=== PATIENT | male | born 1955 | race Caucasian/White ===

== ENCOUNTER 2023-10-09 13:38 | Outpatient (CLI) | payer MEDICARE, SELFPAY ==
--- NOTE | ~2023-10-09 | XR_ITS ---
EXAMINATION: XR hand LT min 3V INDICATION: Left hand pain TECHNIQUE: Three views of the left hand are obtained. COMPARISON: None available FINDINGS: Bone alignment is normal. There is no acute fracture. 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 There is mild osteoarthritis of the triscaphe and first carpom etacarpal joints. In addition, there is moderate osteoarthritis of multiple interphalangeal joints. T he soft tissues are unremarkable. IMPRESSION: 1. Polyarticular osteoarthritis without acute osseous abnormality. Reviewed, dictated and finalized at location F. L GRINDER
--- NOTE | ~2023-10-09 | XR_ITS ---
EXAMINATION: XR hand RT min 3V INDICATION: Right hand pain TECHNIQUE: Three views of the right hand are obtained. COMPARISON: None available FINDINGS: Bone alignment is normal. There is no fracture. There is advanced osteoarthritis at the tri scaphe and first carpometacarpal joints. Moderate osteoarthritis is noted in multiple interphalangeal joints. The soft tissues are unremarkable. IMPRESSION: 1. Polyarticular osteoarthritis without acute osseous abnormality. Reviewed, dictated and finalized at location F. PREAD CUTTER HAND
== END 2023-10-09 13:39 | disposition home or self-care (01) ==
PROVIDERS: PCP Internal Medicine; Visit Provider Plastic Surgery
DX: M19.041 Primary osteoarthritis, right hand (principal); M19.042 Primary osteoarthritis, left hand
CPT/HCPCS: 73130

== ENCOUNTER 2023-11-28 12:58 | Outpatient (CLI) | payer MEDICARE, SELFPAY ==
[2023-11-28 13:28] LABS: Anion Gap 6 mmol/L (8-16); Blood Urea Nitrogen 37 mg/dL (9-20); Carbon Dioxide 30 mmol/L (22-30); Chloride 99 mmol/L (98-107); Estimated Glomerular Filt Rate 37; Glucose 108 mg/dL (65-110); Potassium 4.4 mmol/L (3.4-5.0); Sodium 135 mmol/L (137-145)
--- NOTE | 2023-11-28 13:47 | ECG_ITS ---
Measurements Intervals [place] Rate: 54 P: 33 MT: 174 QRS: 34 QRSD: 97 T: 37 QT: 428 QTc: 406 Interpretive Statements SINUS BRADYCARDIA BORDERLINE ECG NO PREVIOUS ECG AVAILABLE FOR COMPARISON Electronically Signed On 11-28-2023 14:02:01 HEELER by Can Alexander D.O.
== END 2023-11-28 12:59 | disposition home or self-care (01) ==
PROVIDERS: PCP Internal Medicine; Visit Provider Anesthesiology
DX: Z01.818 Encounter for other preprocedural examination (principal); R94.31 Abnormal electrocardiogram [ECG] [EKG]
CPT/HCPCS: 36415; 80048; 93005

== ENCOUNTER 2023-11-29 05:51 | Day surgery (SDC) | payer MEDICARE, SELFPAY ==
[2023-11-14 08:39] VITALS: BMI 28.8
[2023-11-29] VITALS (10 sets, daily range): BP systolic 136–155; BP diastolic 70–90; PULSE 52–73; RESP 14–22; TEMP 36.2–36.5; O2SAT 98–100; BMI 28.6
--- NOTE | ~2023-11-29 | XR_ITS ---
XR surgery orthopedic DATE: 11/29/2023 09:20 INDICATION: Left wrist scaphoid excision TECHNIQUE: 4 spot C-arm images of left wrist 32 seconds total exposure time 2.8375 cGycm2 total DAP COMPARISON: 10/09/2023 left hand FINDINGS: There is surgical excision of the scaphoid bone. A bracket device bridges the lunate and capitate bones dorsally. IMPRESSION: Scaphoid excision Reviewed, dictated and finalized at Location A. Reviewed, dictated and finalized at location L. [place] MANAGEMENT KEYHOLDER IMPRESSION: Scaphoid excision
--- NOTE | 2023-11-29 06:55 | PM.HPGS ---
History of Present Illness History of Present Illness Chief complaint: Pain of Left Wrist after Trauma Narrative: Patient seen and examined in pre-operative holding area. No interval change in medical history or symptoms. Patient recalls previous discussion of benefits and alternatives to procedure. Continues to desire to proceed with left scaphoid excision, capitolunate fusion and possible radial styloidectomy. Reviewed procedure, post-op expectations and risks including but not limited to bleeding, infection, injury to tendon/nerve/vessel, decreased hand function, stiffness, RSD, no change or worsening of symptoms, hardware complications, failure of fusion. I discussed the possible use of assistants and their participation in the case. Patient stated understanding and signed the consent form wishing to proceed. Review of Systems Review of Systems: All systems reviewed & are unremarkable except as noted in HPI and below [facility] Social History Social History (Updated 10/09/23 @ 12:46 by Zoë Laughlin MA) Smoking status: Former smoker Additional smoking assessment comments: quit 40 years ago Alcohol intake: current Drinks per week: 8 Alcohol use details: drinks 3-4 x per week, 1-2 drinks on those occasions Lack of Transportation: No Lack of Food: Never True Current Housing: I Have Housing Concerned About Future Housing: No Difficulty Paying Gas/Electric Bills: No Difficulty Paying for Meds: No Currently Unemployed: No Education: Bachelor's Degree Difficulty w/ Childcare or Family Care: No Living arrangements: with family Additional living arrangements comments: Spiritual care concerns: No Meds Home Medications and Allergies Home Medications Medication Instructions Recorded Confirmed Type apremilast 30 mg tablet (Otezla) 30 mg PO BID 10/09/23 11/29/23 History escitalopram oxalate 10 mg tablet 30 mg PO DAILY 10/09/23 11/29/23 History hydrochlorothiazide 25 mg tablet 25 mg PO DAILY 10/09/23 11/29/23 History lisinopril 40 mg tablet 40 mg PO DAILY 10/09/23 11/29/23 History metoprolol succinate 25 mg 25 mg PO DAILY 10/09/23 11/29/23 History tablet,extended release 24 hr naproxen sodium 220 mg tablet 220 mg PO BID PRN Pain 10/09/23 11/29/23 History (Flanax (naproxen)) nifedipine 90 mg tablet,extended 90 mg PO DAILY 10/09/23 11/29/23 History release trazodone 100 mg tablet 100 mg PO QHS PRN Sleep 10/09/23 11/29/23 History ezetimibe 10 mg tablet 10 mg PO DAILY 11/29/23 11/29/23 History Allergies Allergy/AdvReac Type Severity Reaction Status Date / Time [id number] Reductase AdvReac Cramping Verified 11/29/23 06:19 Inhibitor of the Muscles Vital Signs Vital Signs - 24 hr 11/29/23 06:33 Temperature 36.5 C Pulse Rate 52 L Respiratory Rate 16 Blood Pressure 153/88 H Pulse Oximetry 98 Oxygen Delivery Room Air Exam Narrative: unchanged from previous Assessment and Plan Assessment and plan (1) Osteoarthritis of wrist: Qualifiers: Laterality: left Osteoarthritis type: primary Qualified Code(s): M19.032 - Primary osteoarthritis, left wrist Code(s): M19.039 - Primary osteoarthritis, unspecified wrist Status: Acute Assessment and Plan: cont with plan as above
--- NOTE | 2023-11-29 06:56 | W.PM.PROC2 ---
Procedure Note - Detailed Date of Procedure 11/29/23 Pre-op Diagnosis left SLAC wrist Post-op Diagnosis Same Procedure Performed left scaphoid excision, capitolunate fusion PIN neurectomy and radial styloidectomy Surgeon Lexy Kennedy MD Anesthesia General Description of Procedure INFORMED CONSENT: The patient was seen and examined and marked in the pre-op area.? The patient signed the consent form. PROCEDURE IN DETAIL:The patient taken back to OR on the stretcher in supine position. Time out performed with anesthesia, surgeon and staff agreeing on patient's name site and surgery to be performed SCDs were placed on the lower extremities and inflated. A tourniquet was placed on {left} upper extremity and antibiotics given IV After anesthesia administered sedation I injected {10}cc 1%lido with epi and 0.5% marcaine plain at the operative site The?{left upper extremity}?was prepped and draped in sterile fashion the??{left upper extremity} was? exsanguinated with Esmarch bandage and tourniquet inflated to 250mmHg I proceeded with making a longitudinal incision over the left wrist between the 3rd and 4th extensor compartments through skin and dermis with a 15 blade scalpel. Littler scissors were used to spread down to the retinaculum. I incised the 3rd extensor compartment and retracted EPL radially. I made an incision in the radial side of the 4th extensor compartment retinaculum and moved tendons ulnarly identifying the posterior interosseous nerve. I performed traction resection of 1.5cm of the nerve with forceps and then bipolar cautery to hopefully improve patient's post-operative pain and symptoms. I used a bovie to elevate the floor of the 4th extensor compartment en bloc off the wrist capsule. I performed an inverted T style capsuletomy reflecting capsule radially and lateraly to expose the scaphoid and capitolunate joint. I then proceeded with complete scaphoid excision using 15 blade, mcglamery elevator and rongeur. Mini c-arm was used to verify resection. There was prominent radial styloid and ossicles around the radial wrist noted on x-ray and appeared to be a potential site of pain and impingement with radial wrist deviation. Using osteotome and mallet and rongeur I resected the distal 3-4mm of styloid and the neigboring ossicles. This appeared to improve possible impingement on radial deviation. The radioscaphocapitate ligaments were preserved and intact after these procedures. Next I took my attention to the capitolunate joint. Inspecting the lunate and lunate fosse there appeared to be good cartilage and the capitolunate joint was noted to be arthritic with loss of cartilage cap on the capitate. I used a rongeur to debride and prepare the capitolunate joint for fusion. After irrigation, the capitolunate joint was reduced to a near zero degree capitolunate angle and secured with a 0.062 k-wire. This was verified with mini c-arm It was also noted there appeared to be minimal to no capitate radial subluxation. Using a rongeur I made a small channel dorsally from lunate to capitate. I then proceeded with placing an arthrex nitinol staple in standard fashion to secure the capitolunate fusion. Mini c-arm noted there was stability of the reduction, no impingement of staple on distal radius on wrist extension. There was also no translocation of lunate radially. I irrigated with normal saline. Bone graft harvested from the excised scaphoid was packed into small crevices and areas of the fusion site. the capsule was closed with 3-0 fiberwire. The extensor retinaculum was repaired with 3-0 vicryl. There was free full range motion of all tendons. The incision was closed with 3-0 vicryl and 4-0 monocryl A dressing of Dermabond, 4x4, chance, and a thumb spica splint was applied for patient safety, security, and comfort and secured with an katie bandage after the tourniquet was let down noting the hand was warm and well perfused. The patien
[2023-11-29] MEDS: LACTATED RINGERS 1,000 ML 30 ML IV CONT (07:14)
--- NOTE | 2023-11-29 07:22 | WPDANESEPPF ---
Anes - Initial Pre Proc Eval Procedure: Operation Date: 11/29/23 07:30 Proposed Procedures p Left Wrist Scaphoid Excision, Capitolunate Fusion and Posterior Interosseous Neurectomy - Lexy Kennedy MD Date/Time: 11/29/23 07:22 Surgeon: Lexy Kennedy MD Pre Op Diagnosis: Pain of Left Wrist after Trauma Patient Data Age: 68 Gender: M Height: 1.68 m Weight: 80.5 kg Last Vital Signs Temp 36.5 C 11/29/23 06:33 Pulse 52 L 11/29/23 06:33 Resp 16 11/29/23 06:33 BP 153/88 H 11/29/23 06:33 Pulse Ox 98 11/29/23 06:33 O2 Del Method Room Air 11/29/23 06:33 Allergies Allergy/AdvReac Type Severity Reaction Status Date / Time [id number] Reductase AdvReac Cramping Verified 11/29/23 06:19 Inhibitor of the Muscles Home Medications Medication Instructions Recorded Confirmed Type apremilast 30 mg tablet (Otezla) 30 mg PO BID 10/09/23 11/29/23 History escitalopram oxalate 10 mg tablet 30 mg PO DAILY 10/09/23 11/29/23 History hydrochlorothiazide 25 mg tablet 25 mg PO DAILY 10/09/23 11/29/23 History lisinopril 40 mg tablet 40 mg PO DAILY 10/09/23 11/29/23 History metoprolol succinate 25 mg 25 mg PO DAILY 10/09/23 11/29/23 History tablet,extended release 24 hr naproxen sodium 220 mg tablet 220 mg PO BID PRN Pain 10/09/23 11/29/23 History (Flanax (naproxen)) nifedipine 90 mg tablet,extended 90 mg PO DAILY 10/09/23 11/29/23 History release trazodone 100 mg tablet 100 mg PO QHS PRN Sleep 10/09/23 11/29/23 History cephalexin 500 mg capsule 500 mg PO Q8H #21 caps 11/29/23 Rx ezetimibe 10 mg tablet 10 mg PO DAILY 11/29/23 11/29/23 History oxycodone-acetaminophen 5 mg-325 1 tablet PO Q4H PRN pain #30 tabs 11/29/23 Rx mg tablet Patient hx anesthesia problems: none Family hx anesthesia problems: none Results Review: All pre-operative results and documents have been reviewed as part of the pre-operative evaluation. [facility] Past Medical History Medical History (Updated 11/29/23 @ 07:23 by Shilo Perry MD) Anal fissure HTN (hypertension) Hyperlipidemia Surgical History Surgical History (Updated 11/29/23 @ 07:23 by Shilo Perry MD) H/O arthroscopic knee surgery H/O hernia repair Social History Social History Smoking status: Former smoker Additional smoking assessment comments: quit 40 years ago Alcohol intake: current Drinks per week: 8 Alcohol use details: drinks 3-4 x per week, 1-2 drinks on those occasions Lack of Transportation: No Lack of Food: Never True Current Housing: I Have Housing Concerned About Future Housing: No Difficulty Paying Gas/Electric Bills: No Difficulty Paying for Meds: No Currently Unemployed: No Education: Bachelor's Degree Difficulty w/ Childcare or Family Care: No Living arrangements: with family Additional living arrangements comments: Spiritual care concerns: No Anes - Eval Final PreProcedure Day of Procedure 11/29/23 07:22 Patient weight: overweight Heart: regular rate and rhythm Lungs: clear to auscultation Airway: Mallampati scale class II Neurological: alert and oriented Last oral intake: >/= 8 hours ASA classification: II Emergent: no Anesthetic plan: proceed Anesthesia type and monitoring: general LMA and standard monitoring Results Review: All pre-operative results and documents have been reviewed as part of the pre-operative evaluation. Informed Consent: The patient's anesthetic plan and its attendant risks and benefits were discussed with the patient/family/POA. Questions were solicited and answers provided to the satisfaction of the patient/family/POA.
--- NOTE | 2023-11-29 07:27 | P.HPUP_ITS ---
History and Physical Update Update Date/Time: 11/29/23 07:27 Patient seen and examined in pre-operative holding area. No interval change in medical history or symptoms. Patient recalls previous discussion of benefits and alternatives to procedure. Continues to desire to proceed with left scaphoid excision, capitolunate fusion, pin neurectomy and radial. styloidectomy. Reviewed procedure, post-op expectations and risks including but not limited to bleeding, infection, injury to tendon/nerve/vessel, decreased hand function, stiffness, RSD, no change or worsening of symptoms. I discussed the possible use of assistants and their participation in the case. Patient stated underst anding and signed the consent form wishing to proceed.
--- NOTE | 2023-11-29 07:27 | PM.HPGS ---
History of Present Illness History of Present Illness Consent: Risks, benefits, and alternatives have been discussed and questions answered. Patient agrees to proceed with procedure. Chief complaint: Pain of Left Wrist after Trauma Narrative: Yuri Fajardo is a 68 year old male [facility] Past Medical History Medical History (Updated 11/29/23 @ 07:23 by Shilo Perry MD) Anal fissure HTN (hypertension) Hyperlipidemia Surgical History Surgical History (Updated 11/29/23 @ 07:23 by Shilo Perry MD) H/O arthroscopic knee surgery H/O hernia repair Social History Social History Smoking status: Former smoker Additional smoking assessment comments: quit 40 years ago Alcohol intake: current Drinks per week: 8 Alcohol use details: drinks 3-4 x per week, 1-2 drinks on those occasions Lack of Transportation: No Lack of Food: Never True Current Housing: I Have Housing Concerned About Future Housing: No Difficulty Paying Gas/Electric Bills: No Difficulty Paying for Meds: No Currently Unemployed: No Education: Bachelor's Degree Difficulty w/ Childcare or Family Care: No Living arrangements: with family Additional living arrangements comments: Spiritual care concerns: No Meds Home Medications and Allergies Home Medications Medication Instructions Recorded Confirmed Type apremilast 30 mg tablet (Otezla) 30 mg PO BID 10/09/23 11/29/23 History escitalopram oxalate 10 mg tablet 30 mg PO DAILY 10/09/23 11/29/23 History hydrochlorothiazide 25 mg tablet 25 mg PO DAILY 10/09/23 11/29/23 History lisinopril 40 mg tablet 40 mg PO DAILY 10/09/23 11/29/23 History metoprolol succinate 25 mg 25 mg PO DAILY 10/09/23 11/29/23 History tablet,extended release 24 hr naproxen sodium 220 mg tablet 220 mg PO BID PRN Pain 10/09/23 11/29/23 History (Flanax (naproxen)) nifedipine 90 mg tablet,extended 90 mg PO DAILY 10/09/23 11/29/23 History release trazodone 100 mg tablet 100 mg PO QHS PRN Sleep 10/09/23 11/29/23 History cephalexin 500 mg capsule 500 mg PO Q8H #21 caps 11/29/23 Rx ezetimibe 10 mg tablet 10 mg PO DAILY 11/29/23 11/29/23 History oxycodone-acetaminophen 5 mg-325 1 tablet PO Q4H PRN pain #30 tabs 11/29/23 Rx mg tablet Allergies Allergy/AdvReac Type Severity Reaction Status Date / Time [id number] Reductase AdvReac Cramping Verified 11/29/23 06:19 Inhibitor of the Muscles Vital Signs Vital Signs - 24 hr 11/29/23 06:33 Temperature 36.5 C Pulse Rate 52 L Respiratory Rate 16 Blood Pressure 153/88 H Pulse Oximetry 98 Oxygen Delivery Room Air
[2023-11-29] MEDS: ceFAZolin SODIUM 2 GM/20 ML SW SYRINGE IV PUSH (07:28)
[2023-11-29] MEDS: BUPivacaine HCL 0.5% 10 ML AMP INFILTRATE (07:39)
[2023-11-29] MEDS: LIDO 1%/EPINEPHRINE 1:100,000 50 ML VIAL 10 ML INFILTRATE (07:39)
[2023-11-29] MEDS: HYDROmorphone HCL INJ (*CRX) 1 MG/ML SYR 0.5 MG IV PUSH ×4 (09:36→10:11)
--- NOTE | 2023-11-29 10:34 | WPDANESPN ---
Anes - Prog Note Post-Op Date/Time: 11/29/23 10:34 Cardiovascular status: normal Respiratory status: normal Airway patency: baseline Mental status: baseline Post-Op hydration status: normal Vital Signs: Last Vital Signs Temp 36.2 C L 11/29/23 09:21 Pulse 73 11/29/23 09:30 Resp 22 H 11/29/23 09:30 BP 136/81 11/29/23 09:30 Pulse Ox 100 11/29/23 09:30 O2 Del Method Simple Face Mask 11/29/23 09:30 O2 Flow Rate 8 11/29/23 09:30 Pain Score (VAS): 4/10 I/O: Intake & Output 11/28/23 11/29/23 11/29/23 23:59 07:59 15:59 Intake Total 700 Balance 700 Patient Feedback: Patient satisfied with anesthetic care.
[2023-11-29] MEDS: oxyCODONE HCL (*CRX) 5 MG TAB IR PO (10:36)
--- NOTE | 2023-11-29 10:58 | SUR.PHASEI ---
1023 Dr Kennedy at bedside an assess dressing and circulation. Mayito wrap was loosened per MD. Pt stated he was feeling less pain and was doing better. MD stated everything looked good at this time.
== END 2023-11-29 11:20 | disposition home or self-care (01) ==
PROVIDERS: PCP Internal Medicine; Visit Provider Plastic Surgery
PROC: (CPT 25447; principal; 2023-11-29 07:30)
DX: M19.032 Primary osteoarthritis, left wrist (principal); M24.842 Other specific joint derangements of left hand, not elsewhere classified
CPT/HCPCS: 25825; 25210; 64772; 99199

== ENCOUNTER 2023-11-29 07:00 | Outpatient (NON) | payer MEDICARE, SELFPAY | END 2023-11-29 07:01 | disposition home or self-care (01) | LOC: ANHLAB 11-30 08:04 | PROVIDERS: PCP Internal Medicine; Visit Provider Plastic Surgery | DX: M19.032 Primary osteoarthritis, left wrist (principal) | CPT/HCPCS: 88309; 88311 ==

== ENCOUNTER 2023-12-13 09:26 | Outpatient (CLI) | payer MEDICARE, SELFPAY ==
--- NOTE | ~2023-12-13 | XR_ITS ---
Left wrist Technique: PA, oblique, lateral, and ulnar deviation views were obtained. Clinical History: Postoperative COMPARISON: 10/09/2023 Findings: Patient is status post interval resection of the scaphoid. Orthopedic bracket transfixes th e lunate to the capitate. There is minimal osseous debris at the previous scaphoid location. Remainin g joint spaces appear intact. Impression: Status post interval resection of the scaphoid. No osseous debris at the surgical bed. Orthopedic bracket transfixes the lunate and capitate. Reviewed, dictated and finalized at location M. R TRUCK DRIVER Impression: Status post interval resection of the scaphoid. No osseous debris at the surgic al bed. Orthopedic bracket transfixes the lunate and capitate.
== END 2023-12-13 09:27 | disposition home or self-care (01) ==
PROVIDERS: PCP Internal Medicine; Visit Provider Physician Assistant Surgical
DX: M19.032 Primary osteoarthritis, left wrist (principal)
CPT/HCPCS: 73110

== ENCOUNTER 2024-01-10 12:06 | Outpatient (CLI) | payer MEDICARE, SELFPAY ==
--- NOTE | ~2024-01-10 | XR_ITS ---
Left wrist Technique: PA, oblique, lateral, and ulnar deviation views were obtained. Clinical History: Osteoarthritis COMPARISON: 12/13/2023 Findings: No acute fracture or dislocation is seen. Patient is again status post scaphoid resection, with orthopedic pole transfixing the lunate and capitate. Osseous alignment is unchanged.. Soft tissu es are unremarkable. Impression: Stable examination. Postoperative changes as above, status post scaphoid resection with bolting of th e capitate to the lunate. Reviewed, dictated and finalized at location M. TH FACILITIES SURVEYOR Impression: Stable examination. Postoperative changes as above, status post scaphoid resect ion with bolting of the capitate to the lunate.
== END 2024-01-10 12:07 | disposition home or self-care (01) ==
LOC: ANHIMG 12:08
PROVIDERS: PCP Internal Medicine; Visit Provider Physician Assistant Surgical
DX: M19.032 Primary osteoarthritis, left wrist (principal)
CPT/HCPCS: 73110

== ENCOUNTER 2024-02-06 12:03 | Outpatient (CLI) | payer MEDICARE, SELFPAY ==
--- NOTE | ~2024-02-06 | XR_ITS ---
Left wrist Technique: PA, oblique, lateral, and ulnar deviation views were obtained. Clinical History: Arthritis COMPARISON: 01/10/2024 Findings: No acute fracture or dislocation is seen. Stable postoperative changes, with prior resectio n of the scaphoid and orthopedic transfixing the lunate and capitate. Stable minimal bony debris at t he operative bed. Soft tissues are unremarkable. Impression: Stable postoperative changes, as detailed above. Reviewed, dictated and finalized at location M. Impression: Stable postoperative changes, as detailed above.
== END 2024-02-06 12:04 | disposition home or self-care (01) ==
LOC: ANHIMG 12:06
PROVIDERS: PCP Internal Medicine; Visit Provider Physician Assistant Surgical
DX: M19.032 Primary osteoarthritis, left wrist (principal)
CPT/HCPCS: 73110

== ENCOUNTER 2024-03-11 11:12 | Outpatient (CLI) | payer MEDICARE, SELFPAY ==
--- NOTE | ~2024-03-11 | XR_ITS ---
EXAM: XR wrist LT min 3V DATE: 03/11/2024 11:32 HISTORY: Nov SURG, FOLLOW UP . COMPARISON: 02/06/2024. FINDINGS: Normal mineralization. Status post scaphoid resection and lunate-capitate fusion. Stable o sseous debris in the operative bed. No fracture or dislocation. No lytic or blastic lesion. Joint spa cayla are maintained. No erosion or periosteal change. Soft tissue swelling about the wrist, stable. IMPRESSION: Status post scaphoid resection and lunate-capitate fusion. No radiographic evidence of pr ocedure or hardware related complication. Reviewed, dictated and finalized at location K. IMPRESSION: Status post scaphoid resection and lunate-capitate fusion. No radio graphic evidence of procedure or hardware related complication.
== END 2024-03-11 11:13 | disposition home or self-care (01) ==
LOC: ANHIMG 11:16
PROVIDERS: PCP Internal Medicine; Visit Provider Physician Assistant Surgical
DX: M19.032 Primary osteoarthritis, left wrist (principal)
CPT/HCPCS: 73110

== ENCOUNTER 2024-05-26 11:51 | Outpatient (CLI) | payer MEDICARE, SELFPAY ==
--- NOTE | ~2024-05-26 | XR_ITS ---
Left wrist Technique: PA, oblique, lateral, and ulnar deviation views were obtained. Clinical History: Osteoporosis arthritis, pain, prior surgery COMPARISON: 03/11/2024 Findings: No acute fracture or dislocation is seen. Stable orthopedic fusion across the capitate mine te reticulation. Prior resection of the scaphoid again noted. Soft tissues are unremarkable. Impression: No significant interval change. Stable postoperative changes, as detailed above, with fusion across t he capitellum the articulation of prior scaphoid resection. Reviewed, dictated and finalized at location M. Impression: No significant interval change. Stable postoperative changes, as detailed above , with fusion across the capitellum the articulation of prior scaphoid resectio n.
== END 2024-05-26 11:52 | disposition home or self-care (01) ==
LOC: ANHIMG 11:55
PROVIDERS: PCP Internal Medicine; Visit Provider Physician Assistant Surgical
DX: M79.642 Pain in left hand (principal); Z98.890 Other specified postprocedural states
CPT/HCPCS: 73110

== ENCOUNTER 2024-12-05 11:36 | Outpatient (CLI) | payer MEDICARE, SELFPAY ==
--- NOTE | ~2024-12-05 | XR_ITS ---
XR wrist LT min 3V Ordering provider: Lexy Kennedy MD History: . M19.032 - Primary osteoarthritis, left wrist . Comparison: May 26, 2024 FINDINGS: BONES: No acute fracture or dislocation. No definite scaphoid fracture. Postoperative changes with f usion of the lunate and capitate bone unchanged from previous examination. JOINT SPACES: Osteoarthritic changes of the first carpometacarpal joint. SOFT TISSUES: Normal. IMPRESSION: No change from previous examination Reviewed, dictated and finalized at location A. ER AND S[employer]LOAD
== END 2024-12-05 11:37 | disposition home or self-care (01) ==
PROVIDERS: PCP Internal Medicine; Visit Provider Plastic Surgery
DX: M19.032 Primary osteoarthritis, left wrist (principal)
CPT/HCPCS: 73110

== ENCOUNTER 2025-02-04 13:52 | Outpatient (CLI) | payer MEDICARE, SELFPAY ==
--- NOTE | ~2025-02-04 | MR_ITS ---
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 Assess the triangular f ibrocartilage complex and extensor carpi ulnaris. TECHNIQUE: Magnetic resonance imaging (MRI) of the left wrist was performed without intravenous contr ast. Sequences performed include axial PD-weighted FSE and PD-weighted FS FSE, coronal PD-weighted FS FSE and T1-weighted SE, and sagittal PD-weighted FS FSE and PD-weighted FSE. COMPARISON: None FINDINGS: Bones/other: Postoperative change of prior scaphoid resection with residual small bone fragments in the region of the distal pole. Metallic magnetic field artifact associated with a dorsal staple for fixation of a l unocapitate arthrodesis which appear solidly fused. No acute fracture or pathologic marrow replacing process. There is severe osteoarthritis at the radiolunate articulation. Likely degenerative subartic ular cystlike change at the radial side of the lunate fossa with more widespread subarticular edema-l wesly signal change at the distal radius. There are central osteophytes likely related to chronic high- grade chondromalacia along the articular surface of the scaphoid fossa. Additional polyarticular oste oarthritis, moderate severity lunate hamate articulation of the remaining portion of the midcarpal negrita int and mild at the distal radioulnar and at the carpal metacarpal joints. The lunotriquetral ligamen t appears grossly intact but with small osteophytes along the volar side of its lunate attachment. Triangular fibrocartilage complex (TFCC): Partial tears involving both the proximal distal articular surface of the central fibrocartilaginous disc of the triangular fibrocartilage complex with no clearly defined fluid signal intensity full-thi ckness tear defect. The dorsal and volar radioulnar ligaments are normal. The radial and foveal attac hments of the triangular fibrocartilage complex remain normal. There is partial tear of the ulnar sty loid attachment. The ulnar triquetral ligament is normal. The extensor carpi ulnaris tendon sheath is normal. Extensor wrist: Tendinopathy of the extensor carpi ulnaris tendon which densities fusiform thickening and mild increa sed signal beginning at the level of the distal aspect of the ECU groove. There is a partial split te ar of the tendon beginning immediately distal to the level of the styloid process and extending dista lly to its attachment at the fifth metacarpal base. Extensor tendons of the wrist are normal. No teno synovitis. Flexor wrist: The flexor tendons of the wrist are normal. No abnormality in the carpal tunnel with normal median n erve. Guyon's canal: Guyon's canal including the ulnar nerve and artery are normal. IMPRESSION: 1. Partial tear of the ulnar styloid attachments of the triangular fibrocartilage complex as well as of the central fibrocartilaginous disc including along the distal and proximal articular surfaces. 2. Mild tendinopathy and longitudinal split tearing of the extensor carpi ulnaris. 3. Status post scaphoid resection and lunocapitate arthrodesis with dorsal staple fixation. 4. 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 Reviewed, dictated and finalized at location A. IMPRESSION: 1. Partial tear of the ulnar styloid attachments of the triangular fibrocartila ge complex as well as of the central fibrocartilaginous disc including along th e distal and proximal articular surfaces. 2. Mild tendinopathy and longitudinal split tearing of the extensor carpi ulnar is. 3. Status post scaphoid resection and lunocapitate arthrodesis with dorsal stap le fixation. 4. 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
--- OUTSIDE RECORDS SUMMARY | 2025-02-04 15:32 | XMS_ITS | Referral Summary ---
Author Organization [facility] Address [address] [place] [address] Care Team Providers Care Special Service Officer Name Role Phone Fran Mtz MD Primary Care Provider Allergies Active Allergy Reactions Criticality Noted Date Comments Ogbdccd-Fks-Iky Reductase Inhibitors Flushing (skin) Low 12/06/2023 Medications aspirin 81 mg enteric coated tablet Take 1 tablet (81 mg total) by mouth daily Active apremilast (OTEZLA ORAL) Take 30 mg by mouth 2 (two) times a day Active docusate sodium (COLACE) 100 mg capsuleIndicati ons:constipatio n Take 1 capsule (100 mg total) by mouth 2 (two) times a day with a glass of water 60 capsule 2 0 Active hydroCHLOROthia zide (HYDRODIURIL) 25 mg tablet daily 2 Active NIFEdipine CC 90 mg 24 hr tablet Take 1 tablet (90 mg total) by mouth daily 3 Active acetaminophen (TYLENOL) 500 mg tablet Take 1 tablet (500 mg total) by mouth every 6 (six) hours as needed for pain 2 tablets AM 2 tablets PM Active COMPOUNDED MEDICATION, PRESCRIPTION, 30 g by submucosal anal canal route 2 (two) times a day Diltizem 0.2% compound W/ Aquaphor ointment and propylene glycol Apply 1 cm strip to rectal area BID W/ 2 refills Active traZODone (DESYREL) 100 mg tablet 3 Active escitalopram (LEXAPRO) 10 mg tablet Take 3 tablets (30 mg total) by mouth daily 3 Active lisinopriL (PRINIVIL,ZESTR IL) 40 mg tablet Take 1 tablet (40 mg total) by mouth daily 3 Active metoprolol XL (TOPROL-XL) 25 mg extended release tablet Take by mouth 3 Active ezetimibe (ZETIA) 10 mg tablet Take 1 tablet (10 mg total) by mouth daily 4 Active Active Problems Problem Noted Date Diagnosed Date Anal fissure 11/14/2023 Hemorrhoids 08/07/2013 Overview (02/21/2017): Hemorrhoids Social History Tobacco Use Types Packs/Day Years Used Date Smoking Tobacco: Never Smokeless Tobacco: Never Tobacco Cessation:Counseling Given: Not Answered Alcohol Use Standard Drinks/Week Comments Yes 0 (1 standard drink = 0.6 oz pur e alcohol) AUDIT-C Answer Date Recorded Q1: How often do you have a drink containing alc ohol? 2-3 times a week 11/20/2023 Q2: How many drinks containi ng alcohol do you have on a typical day when you are drinking? 1 or 2 11/20/2023 Frequency of Binge Drinking Not on file 12/2023 Personal Safety Answer Date Recorded Have you ever been in or are you currently in a harmful physical or emotional relationship or is someone making you feel afraid or unsafe? Denies 11/20/2023 Sex and Gender Information Value Date Recorded Sex Assigned at Not on file Legal Sex Male 9:36 AM TELEPHONE TECHNICIAN Gender Identity Not on file Sexual Orientation Not on file Last Filed Vital Signs Vital Sign Reading Time Taken Comments Blood Pressure 139/85 12/06/2023 1:17 PM TELEPHONE TECHNICIAN Pulse 65 12/06/2023 1:17 PM TELEPHONE TECHNICIAN Temperature 36.3 C (97.3 F) 12/06/2023 1:17 PM TELEPHONE TECHNICIAN Respiratory Rate 18 11/20/2023 9:29 AM TELEPHONE TECHNICIAN Oxygen Saturation 97% 12/06/2023 1:17 PM TELEPHONE TECHNICIAN Inhaled Oxygen Concentration - - Weight 82.3 kg (181 lb 8 oz) 12/06/2023 1:17 PM TELEPHONE TECHNICIAN Height 170.2 cm (5' 7 ) 12/06/2023 1:17 PM TELEPHONE TECHNICIAN Body Mass Index 28.43 12/06/2023 1:17 PM TELEPHONE TECHNICIAN Plan of Treatment Not on file Insurance MEDICARE MEDICARE COMMERCIAL [facility] MEDICARE [facility] Care Teams Special Service Officer Relationship Specialty Start Date End Date Fran Mtz MD PCP - General 08/07/13
--- OUTSIDE RECORDS SUMMARY | 2025-02-04 15:32 | XMS_ITS | CONTINUITY OF CARE DOCUMENT ---
Author Name jeevan chew Address Unknown Organization [facility] Address [address] [facility] [address] [place] [address] Phone [phone] Care Team Providers Care Rehab Tech Name Role Phone Barry TAYLOR, Ivy Unavailable JANETTE MASCORRO MD Unavailable JANETTE MASCORRO MD Unavailable PROBLEMS Condition Status Date Provider Notes Joint pain- right knee per PCP notes active Jai Driver RN Psoriasis active Jake Ahmedzai GERD active Jake Ahmedzai Palpitations active Jake Shultz HTN--echo ef 60%, DD, 02/2022 active Jake raya Chest pain--stress nuclear n ormal, 02/2022. calcium score 185, 03/2023 active Jake Shultz Shortness of breath active Jake Shultz Family history of CVA, carotid disease active Ivy Reddy MD Arthritis active Ivy Reddy MD Cardiology examination active Jake Shultz PSVT active Jake Shultz ENCOUNTERS Date Type Provider Location Encounter Diag nosis - In-person encounter Office Visit Ivy Reddy MD [facility] - In-person encounter Office Visit Ivy Reddy MD [facility] Cardiology examination - In-person encounter Office Visit Ivy Reddy MD [facility] - In-person encounter Office Visit Ivy Reddy MD [facility] Chest pain--stress nuclear normal, 02/2022. calcium score 185, SVT - In-person encounter Office Visit Ivy Reddy MD [facility] - In-person encounter Office Visit Ivy Reddy MD [facility] Family history of CVA, carotid diseaseArthritis - In-person encounter Office Visit Ivy Reddy MD [facility] - In-person encounter Office Visit Ivy Reddy MD [facility] HTN--echo ef 60%, DD, hest pain--stress nuclear normal, 02/2022. calcium score 185, 03/2023 - In-person encounter Office Visit Ivy Reddy MD [facility] Shortness of breath VITAL SIGNS Date Observation Value Provider Body Mass Index (Ratio) 26.73 kg/m2 Brennen Reddy MD blood pressure, diastolic 84 mm[Hg] Cecelia Green blood pressure, systolic 150 mm[Hg] Lamar Green oxygen saturation, oximetry 96 % Adenike Green pulse rate 69 /min Adenike Green respiratory rate E&M 12 /min Adenike Green weight E&M 181 [lb_av] Adenike Green height E&M 69 [in_i] Adenike Green blood pressure, cuff size regular Cecelia Green Body Mass Index (Ratio) 26.43 kg/m2 Brennen Reddy MD blood pressure, cuff size regular Ventura Sánchez blood pressure, diastolic 72 mm[Hg] Ventura Sánchez blood pressure, systolic 120 mm[Hg] Tab perla Steele pulse rate 58 /min Jacinda Steele oxygen saturation, oximetry 98 % Jacinda Steele respiratory rate E&M 12 /min Jacinda Steele weight E&M 179 [lb_av] Jacinda Steele height E&M 69 [in_i] [facility] Body Mass Index (Ratio) 26.58 kg/m2 Brennen Reddy MD pulse rate 59 /min [facility] blood pressure, cuff size regular [facility] blood pressure, diastolic 87 mm[Hg] [facility] blood pressure, systolic 134 mm[Hg] [facility] oxygen saturation, oximetry 97 % [facility] respiratory rate E&M 15 /min Lydia [facility] weight E&M 180 [lb_av] [facility] height E&M 69 [in_i] [facility] Body Mass Index (Ratio) 25.40 kg/m2 Brennen Reddy MD pulse rate 61 /min Jenygladis Mcgill blood pressure, diastolic 82 mm[Hg] An patsy Mcgill blood pressure, systolic 140 mm[Hg] Any a Artem blood pressure, cuff size large An patsy Mcgill oxygen saturation, oximetry 98 % Jeny Artem weight E&M 172 [lb_av] Jeny Artem height E&M 69 [in_i] Jenygladis Mcgill Body Mass Index (Ratio) 25.72 kg/m2 Brennen Reddy MD blood pressure, diastolic 71 mm[Hg] Kymberly nkLogic blood pressure, systolic 122 mm[Hg] Cynthia Patelogzaida blood pressure, diastolic 71 mm[Hg] [facility] keon Yusuf blood pressure, systolic 122 mm[Hg] Serina vazquez Paramjit oxygen saturation, oximetry 95 % Daniela Yusuf pulse rate 72 /min Daniela Yusuf respiratory rate E&M 18 /min Daniela Lombardi valentin weight E&M 174.2 [lb_av] Daniela Yusuf height E&M 69 [in_i] Daniela Paramjit Body Mass Index (Ratio) 26.37 kg/m2 Brennen Reddy MD blood pressure, diastolic 93 mm[Hg] Li nkLogzaida blood pressure, systolic 164 mm[Hg] Cynthia kLogzaida blood pressure, diastolic 93 mm[Hg] Sh roque Monreal blood pressure, systolic 164 mm[Hg] She shannan Monreal pulse rate 54 /min Holley Monreal respiratory rate E&M 18 /min Holley Monreal oxygen saturation, oximetry 99 % Holley Monreal weight E&M 178.6 [lb_av] Holley Monreal height E&M 69 [in_i] Holley Monreal Body Mass Index (Ratio) 26.43 kg/m2 Brennen Reddy MD oxygen saturation, oximetry 96 % Yara Wall respiratory rate E&M 16 /min Yara newell pulse rate 63 /min Yara Olsen [facility] weight E&M 179 [lb_av] Yara Pretty [facility] blood pressure, cuff size regular Ke rri Mae blood pressure, diastolic 78 mm[Hg] Ke rri Mae blood pressure, systolic 135 mm[Hg] Jazmine ri Mae height E&M 69 [in_i] Yara Pretty [facility] Body Mass Index (Ratio) 27.76 kg/m2 Brennen Reddy MD blood pressure, diastolic 91 mm[Hg] Ca therine [place] blood pressure, systolic 160 mm[Hg] Cat herine Isiah oxygen saturation, oximetry 96 % Lexus Isiah respiratory rate E&M 144 /min Catheri ne Isiah pulse rate 71 /min Lexus Isiah weight E&M 188 [lb_av] Lexus [place] blood pressure, cuff size regular Ca therine Isiah height E&M 69 [in_i] Lexus [place] Body Mass Index (Ratio) 26.58 kg/m2 Brennen Reddy MD blood pressure, diastolic 80 mm[Hg] Li nkLogic blood pressure, systolic 140 mm[Hg] Cynthia kLogic blood pressure, cuff size large Mi preet Magallanes blood pressure, diastolic 80 mm[Hg] Mi preet Sargents blood pressure, systolic 140 mm[Hg] Rodney heljose Sargents oxygen saturation, oximetry 96 % Ruby Magallanes respiratory rate E&M 18 /min Carla Magallanes pulse rate 83 /min Ruby lombardi height E&M 69 [in_i] Ruby lombardi weight E&M 180 [lb_av] Ruby lombardi ALLERGIES Allergy Name Onset Date Reaction Criticality Status ROSUVASTATIN myalgias myalgias High Criticality active ATORVASTATIN rash rash High Criticality active RESULTS Date Observation Value Provider Reference Range Interpretation Location 5 ferritin, serum 109 ng/mL [facility] 24-380 Normal 5 basophils as percent of blood leukocytes 1.0 % [facility] Normal 5 eosinophils as percent of blood leukocytes 1.2 % [facility] Normal 5 monocyte count, blood 9.2 % [facility] Normal lymphocyte count, blood 31.9 % [facility] Normal neutrophils as percent of blood leukocytes 56.7 % [facility] Normal basophils, absolute, manual 52 cells/mcL [facility] 0-200 Normal eosinophils, absolute, manual 62 cells/mcL [facility] 15-500 Normal monocytes, absolute, manual 478 cells/mcL [facility] 200-950 Normal lymphocytes, absolute 1659 CELLS/UL [facility] 850-3900 Normal Absolute Neutrophil count 2948 cells/mcL [facility] 1902-8849 Normal mean platelet volume 10.5 fL [facility] 7.5-12.5 Normal platelet count 315 THOUSAND/ UL [facility] 140-400 Normal red blood cell distribution width 12.2 % [facility] 11.0-15.0 Normal mean corpuscular hemoglobin concentration, RBC 32.6 G/DL [facility] 32.0-36.0 Normal mean corpuscular hemoglobin, RBC 31.3 pg [facility] 27.0-33.0 Normal mean corpuscular volume, RBC 96.0 fL [facility] 80.0-100.0 Normal hematocrit, blood 38.3 % [facility] 38.5-50.0 Low hemoglobin electrophoresis, blood 12.5 [facility] 13.2-17.1 Low erythrocyte (RBC) count 3.99 MILLION/U L [facility] 4.20-5.80 Low leukocyte (white blood cells) count, blood 5.2 THOUSAND/ UL [facility] 3.8-10.8 Normal NT-pro BNP 34 [facility] Normal alanine aminotransferase (SGPT), serum 23 1/L [facility] 9-46 Normal aspartate aminotransferase (SGOT), serum 19 1/L [facility] 10-35 Normal alkaline phosphatase, serum 61 1/L [facility] 35-144 Normal bilirubin, serum, total 0.5 mg/dL [facility] 0.2-1.2 Normal albumin/globulin ratio, serum 1.9 (calc) [facility] 1.0-2.5 Normal globulins, serum, total 2.4 G/DL (CALC) [facility] 1.9-3.7 Normal albumin, serum 4.5 g/dL [facility] 3.6-5.1 Normal protein, total, serum 6.9 g/dL [facility] 6.1-8.1 Normal calcium, serum 9.8 mg/dL [facility] 8.6-10.3 Normal carbon dioxide, venous blood 31 mmol/L [facility] 20-32 Normal chloride, serum 102 mmol/L [facility] 98-110 Normal potassium, serum 5.0 mmol/L [facility] 3.5-5.3 Normal sodium, serum 138 mmol/L [facility] 135-146 Normal urea nitrogen/creatinine ratio, serum 34 (calc) [facility] 6-22 High creatinine, serum 1.19 mg/dL [facility] 0.70-1.35 Normal urea nitrogen, blood 41 mg/dL [facility] 7-25 High blood glucose, random 124 mg/dL [facility] 65-99 High iron saturation percent, serum 33 % (CALC) [facility] 20-48 Normal iron binding capacity, total 306 MCG/DL (CALC) [facility] 250-425 Normal iron, serum 100 ug/dL [facility] 50-180 Normal magnesium, serum 2.5 mg/dL [facility] 1.5-2.5 Normal thyroid stimulating hormone, serum 1.04 u[IU]/mL [facility] 0.40-4.50 Normal free thyroxine index 2.2 [facility] 1.4-3.8 Normal thyroxine, serum, total 7.0 ug/dL [facility] 4.9-10.5 Normal triiodothyronine resin uptake 32 % [facility] 22-35 Normal cholesterol, non-HDL, total 122 MG/DL (CALC) [facility] <130 Normal cholesterol/HDL ratio, serum, percent 2.5 (calc) [facility] <5.0 Normal LDL cholesterol, serum 109 MG/DL (CALC) [facility] High triglyceride, serum, fasting 44 mg/dL [facility] <150 Normal HDL cholesterol, serum 80 mg/dL [facility] > OR = 40 Normal cholesterol, serum 202 mg/dL [facility] <200 High HISTORY OF MEDICATION USE Medication Status Instructions Dates Provider Indications Com ments nifedipine 90 mg tablet extended release active Take 1 tablet by mouth once a day 12/13 Yara Wall Nifidepine was increased from 60 mg to 90 mg daily lisinopril 40 mg tablet active Take 1 tablet by mouth once a day 01/07 Yara Wall ezetimibe 10 mg tablet active TAKE 1 TABLET BY MOUTH DAILY 11/26 Kaylah Chery metoprolol succinate 25 mg tablet extended release 24 hr active Take 1 tablet by mouth every night 12/30 Yara Wall hydrochlorothiazide 25 mg tablet active TAKE 1 TABLET BY MOUTH EVERY DAY 06/26 Jacinda Sánchez rosuvastatin 20 mg tablet completed TAKE 1 TABLET BY MOUTH DAILY 05/21 - 11/26 Jake Shultz lisinopril 40 mg tablet completed TAKE 1 TABLET BY MOUTH EVERY DAY 04/23 - 01/07 Yara Wall aspirin 81 mg capsule active Jake Shultz atorvastatin 20 mg tablet completed Take 1 tablet by mouth every evening 04/10 - 05/21 Jake Shultz metoprolol succinate 25 mg tablet extended release 24 hr completed Take 1 tablet by mouth every night 04/10 - 12/30 Ben Leigh Otezla 30 mg tablet active 1 tab 2x a day Daniela Yusuf Calcium 600 + D(3) 600 mg-5 mcg (200 unit) capsule completed - 11/26 Jake Shultz aspirin 81 mg capsule completed - 03/07 Daniela Yusuf hydralazine 25 mg tablet completed Take 1 tablet by mouth twice a day 01/30 - 04/10 Jake Shultz hydrochlorothiazide 25 mg tablet completed Take 1 tablet by mouth once a day 08/17 - 06/26 Ruby Magallanes lisinopril 40 mg tablet completed Take 1 tablet by mouth once a day 04/24 - 04/23 Fani Jordan RN nifedipine 90 mg tablet extended release completed TAKE 1 TABLET BY MOUTH DAILY 03/29 - 12/13 Yara Wall Nifidepine was increased from 60 mg to 90 mg daily amlodipine 10 mg tablet completed Take 1 tablet by mouth once a day - 03/29 Ivy Reddy MD losartan-hydrochlor othiazide 100-12.5 mg tablet completed Take 1 tablet by mouth once a day 02/27 - 05/30 Ivy Reddy MD escitalopram oxalate 20 mg tablet active Ruby Magallanes triamcinolone acetonide 0.1% cream completed - 03/07 Daniela Yusuf testosterone cypionate 200 mg/mL oil completed - 01/30 Jake Shultz zolpidem 10 mg tablet active TAKE 1 TABLET BY MOUTH AT BEDTIME Ruby Magallanes lisinopril 20 mg tablet completed - 02/27 Ruby Magallanes SOCIAL HISTORY Date Observation Value Provider cigarette use yes Jake Shultz smoking status Former smoker Jake Vasquez i cigarette use yes Jake Shultz smoking status Former smoker Jake Vasquez i cigarette use yes Lydia Sánchez smoking status Former smoker Jake Vasquez i social history E&M S moking History: Maicol carballo has never smoked. Jake Shultz smoking status Never smoker Jeny Mcgill social history reviewed E&M revi ewed - no changes required Jake Shultz social history E&M S moking History: Maicol carballo has never smoked. Ivy Reddy MD social history reviewed E&M revi ewed - no changes required Ivy Reddy MD smoking status Never smoker Daniela Paramjit social history E&M S moking History: Maicol carballo has never smoked. Jake Shultz smoking status Never smoker Holley Monreal social history reviewed E&M revi ewed - no changes required Ivy Reddy MD smoking status Never smoker Yara carney social history reviewed E&M revi ewed - no changes required Jake Shultz social history E&M S moking History: Maicol carballo has never smoked. Jake Shultz smoking status Never smoker Lexus zuñiga social history reviewed E&M revi ewed - no changes required Ivy Reddy MD social history E&M S moking History: Maicol carballo has never smoked. Jake Shultz smoking status Never smoker Ruby Hopkins and social history reviewed E&M revi ewed - no changes required Jake Shultz INSURANCE PROVIDERS Payer name Policy type / Coverage type Will red democrat [employer] [place] [id number] [place] [employer] [employer] [id number] ADVANCE DIRECTIVES Name Date DISCUSSED - NO DECISION MADE TREATMENT PLAN Date Name Performer [id number],B, Jake Ahmedza i [id number],S, Jake Ahmedza i [id number],S, Jake Ahmedza i [id number],S, Jake Ahmedza i [id number],S, Jake Ahmedza i [id number],S, Jake Ahmedza i [id number],S, Jake Ahmedza i [id number],S, Jake Ahmedza i [id number],S, Jake Ahmedza i [id number],S, Jake Ahmedza i [id number],B, Ivy Reddy MD [id number],S, Ivy Reddy MD [id number],W, Ivy Reddy MD [id number],W, Ivy Reddy MD [id number],W, Ivy Reddy MD [id number],S, Jake Ahmedza i [id number],S, Jake Ahmedza i [id number],S, Jake Ahmedza i [id number],S, Jake Ahmedza i [id number],S, Jake Ahmedza i [id number],B, Jake Ahmedza i [id number],B, Ivy Reddy MD [id number],B, Ivy Reddy MD [id number],B, Ivy Reddy MD [id number],S, Jake Romanmedza i [id number],S, Jake Ahmedza i [id number],S, Jake Ahmedza i [id number],S, Jake Ahmedza i [id number],S, Jake Ahmedza i [id number],S, Jake Ahmedza i [id number],S, Jake Romanmedza i [id number],S, Jake Romanmedza i Cardiology Ivy Reddy MD Cardiology: H is updated medication list for this problem includes: Nifedipine 90 Mg Tablet Extended Release (Nifedipine) ..... Take 1 tablet by mouth once a day Metoprolol Succinate 25 Mg Tablet Extended Release 24 Hr (Metoprolol succinate) ..... Take 1 tablet by mouth every night Lisinopril 40 Mg Tablet (Lisinopril) ..... Take 1 tablet by mouth once a day Ivy Reddy MD Cardiology: H is updated medication list for this problem includes: Nifedipine 90 Mg Tablet Extended Release (Nifedipine) ..... Take 1 tablet by mouth once a day Metoprolol Succinate 25 Mg Tablet Extended Release 24 Hr (Metoprolol succinate) ..... Take 1 tablet by mouth every night Lisinopril 40 Mg Tablet (Lisinopril) ..... Take 1 tablet by mouth once a day Ivy Reddy MD Cardiology: H is updated medication list for this problem includes: Nifedipine 90 Mg Tablet Extended Release (Nifedipine) ..... Take 1 tablet by mouth once a day Metoprolol Succinate 25 Mg Tablet Extended Release 24 Hr (Metoprolol succinate) ..... Take 1 tablet by mouth every night Hydrochlorothiazide 25 Mg Tablet (Hydrochlorothiazide) ..... Take 1 tablet by mouth every day Lisinopril 40 Mg Tablet (Lisinopril) ..... Take 1 tablet by mouth once a day Ivy Reddy MD Cardiology:Monitor B P at home, goal BP is <135/85 T his visit has been a part of the consistent, comprehensive, and ongoing management of the chronic medical condition(s) listed above for the patient. BP today: 150/84 P rior BP: 120/72 (05/27/2024) Labs Reviewed: C reat: 1.19 (03/13/2023) C hol: 202 (03/13/2023) HDL: 80 (03/13/2023) LDL: 109 MG/DL (CALC) (03/13/2023) T (03/13/2023) His updated medication list for this problem includes: Nifedipine 90 Mg Tablet Extended Release (Nifedipine) ..... Take 1 tablet by mouth once a day Metoprolol Succinate 25 Mg Tablet Extended Release 24 Hr (Metoprolol succinate) ..... Take 1 tablet by mouth every night Hydrochlorothiazide 25 Mg Tablet (Hydrochlorothiazide) ..... Take 1 tablet by mouth every day Lisinopril 40 Mg Tablet (Lisinopril) ..... Take 1 tablet by mouth once a day Ivy Reddy MD Cardiology: H is updated medication list for this problem includes: Nifedipine 90 Mg Tablet Extended Release (Nifedipine) ..... Take 1 tablet by mouth once a day Metoprolol Succinate 25 Mg Tablet Extended Release 24 Hr (Metoprolol succinate) ..... Take 1 tablet by mouth every night Lisinopril 40 Mg Tablet (Lisinopril) ..... Take 1 tablet by mouth once a day Ivy Reddy MD Cardiology: H is updated medication list for this problem includes: Metoprolol Succinate 25 Mg Tablet Extended Release 24 Hr (Metoprolol succinate) ..... Take 1 tablet by mouth every night Lisinopril 40 Mg Tablet (Lisinopril) ..... Take 1 tablet by mouth once a day Hydrochlorothiazide 25 Mg Tablet (Hydrochlorothiazide) ..... Take 1 tablet by mouth every day Nifedipine 90 Mg Tablet Extended Release (Nifedipine) ..... Take 1 tablet by mouth daily BP today: 120/72 P rior BP: 134/87 (11/26/2023) Labs Reviewed: C reat: 1.19 (03/13/2023) C hol: 202 (03/13/2023) HDL: 80 (03/13/2023) LDL: 109 MG/DL (CALC) (03/13/2023) T (03/13/2023) [facility] Cardiology: H is updated medication list for this problem includes: Metoprolol Succinate 25 Mg Tablet Extended Release 24 Hr (Metoprolol succinate) ..... Take 1 tablet by mouth every night Lisinopril 40 Mg Tablet (Lisinopril) ..... Take 1 tablet by mouth once a day Nifedipine 90 Mg Tablet Extended Release (Nifedipine) ..... Take 1 tablet by mouth daily [facility] Cardiology: H is updated medication list for this problem includes: Metoprolol Succinate 25 Mg Tablet Extended Release 24 Hr (Metoprolol succinate) ..... Take 1 tablet by mouth every night Lisinopril 40 Mg Tablet (Lisinopril) ..... Take 1 tablet by mouth once a day Nifedipine 90 Mg Tablet Extended Release (Nifedipine) ..... Take 1 tablet by mouth daily [facility] Cardiology [facility] Cardiology [facility] Cardiology: H is updated medication list for this problem includes: Metoprolol Succinate 25 Mg Tablet Extended Release 24 Hr (Metoprolol succinate) ..... Take 1 tablet by mouth every night Lisinopril 40 Mg Tablet (Lisinopril) ..... Take 1 tablet by mouth once a day Hydrochlorothiazide 25 Mg Tablet (Hydrochlorothiazide) ..... Take 1 tablet by mouth every day Nifedipine 90 Mg Tablet Extended Release (Nifedipine) ..... Take 1 tablet by mouth daily [facility] Cardiology [facility] Cardiology [facility] Cardiology [facility] Cardiology [facility] Cardiology Jake Ahmedzai Telehealth Jake Ahmedzai Telehealth Jake Ahmedzai Telehealth Jake Ahmedzai Telehealth Jake Ahmedzai Cardiology Jake Ahmedzai Cardiology Jake Ahmedzai Cardiology Jake Ahmedzai Cardiology Jake Ahmedzai Cardiology Jake Ahmedzai Cardiology Jake Ahmedzai Cardiology Ivy Reddy MD Cardiology Ivy Reddy MD Cardiology Ivy Reddy MD Cardiology Ivy Reddy MD Cardiology Ivy Reddy MD Cardiology Jake medzai Cardiology Jake medzai Cardiology Jake medzai Cardiology Jake medzai Cardiology Jake medzai Cardiology Jake medzai Cardiology Ivy Reddy MD Cardiology Ivy Reddy MD Cardiology Ivy Reddy MD Cardiology Jake medzai Cardiology Jake medzai Cardiology Jake medzai Cardiology Jake medzai Cardiology Jake medzai Cardiology Jake medzai Cardiology Jake medzai Cardiology Jake medza Date Name LIPID PANEL CT, Coronary Calcium Score MAGNESIUM IRON AND TOTAL IRON BINDING CAPACITY FERRITIN CBC (INCLUDES DIFF/P LT) TSH, free T4, total T3 COMPREHENSIVE METABO LIC PANEL, W/EGFR PROBNP, N TERMINAL Monitor - Telemetry (Mobile Cardiac) RPM (remote patient monitoring) Stress Exercise Card iolite Complete Echo HISTORY OF PROCEDURES Procedure Date Procedure Name Provider Procedure Notes S tatus Complex e/m visit add on Ivy Reddy MD completed Complex e/m visit add on Ivy Reddy MD completed EKG Ivy Reddy MD completed CT- Coronary CA score Ivy Reddy MD completed EKG Ivy Reddy MD completed EKG Ivy Reddy MD completed EKG Ivy Reddy MD completed
--- OUTSIDE RECORDS SUMMARY | 2025-02-04 15:32 | XMS_ITS | Encounter Summary ---
Author Organization [facility] Address [address] [place] [address] Care Team Providers Care Press Cleaner Name Role Phone Fran Mtz MD Primary Care Provider [phone] Encounter Details Date Type Department Care Team (Late st Contact Info) Description 12/01/2020 Lab Requisition [facility] DermPath Lab [address] [place] [phone] Jin Bradshaw Jr., MD [address] [place] [address] Social History Tobacco Use Types Packs/Day Years Used Date Smoking Tobacco: Never Assessed Sex and Gender Information Value Date Recorded Sex Assigned at Not on file Gender Identity Not on file Sexual Orientation Not on file documented as of this encounter Plan of Treatment Not on file documented as of this encounter Procedures Procedure Name Priority Date/Time Associated Diagnosis Comments DERMATOPATHOLOGY Routine 11/30/2020 12:0 0 AM APICULTURIST documented in this encounter Results * DERMATOPATHOLOGY (11/30/2020 12:00 AM APICULTURIST) Case Report Dermatopathology Report Case: [id number] Authorizing Provider: Jin Bradshaw Jr., MD Collected: 11/30/2020 12:00 AM Ordering Location: [facility] DermPath Lab Received: 12/01/2020 02:32 PM Pathologist: Carmen Rodriguez MD Specimen: Skin, left lateral inferior chest 1:04 PM APICULTURIST DERMATOPATHOLOGY LABORATORY Final Diagnosis Specimen A. SKIN, left lateral inferior chest: BENIGN VERRUCOUS KERATOSIS, INFLAMED (L82.1) 1 1:04 PM [facility] DERMATOPATHOLOGY LABORATORY Clinical History Inflamed seborrheic keratosis. . 1:04 PM [facility] DERMATOPATHOLOGY LABORATORY Gross Description Specimen A: Received is one formalin filled container labeled with the patient's name and designated left lateral inferior chest. The specimen consists of a shave biopsy measuring [id number], bisected. Jar 0. 1 1:04 PM [facility] DERMATOPATHOLOGY LABORATORY Microscopic Description Specimen A. SKIN, left lateral inferior chest: Sections show hyperkeratosis, papillomatosis, hypergranulosis, and acanthosis. Inflammatory cells are present within the dermis. These histological findings can be seen in a verruca vulgaris or a seborrheic keratosis. 1:04 PM [facility] DERMATOPATHOLOGY LABORATORY Disclaimer An external and internal positive and negative controls are appropriate for the histochemical, immunohistochemical and immunofluorescence stain(s) in this case (if any), except where stated explicitly. The performance characteristics of the stain(s) cited in this report were developed and its performance characteristic determined by the Dermatopathology Laboratory at [facility], directed by Dr. Adalgisa Gonzales. These tests need not be, and therefore are not, approved by the [place] Food and Drug Administration. The tests are used for clinical purposes. Billing Codes Specimen Charges Stain Charges 98332 1 1 1:04 PM [facility] DERMATOPATHOLOGY LABORATORY Embedded Images 1:04 PM [facility] DERMATOPATHOLOGY LABORATORY Pathology/Cytolog y TISSUE SPECIMEN FROM SKIN / Unknown 11/30/2020 12/01/2020 2:32 PM APICULTURIST Jin Bradshaw Jr., MD LAB - PATHOLOGY /CYTOLOGY ORDERABLES DERMATOPATHOLOGY LABORATORY [facility] - Department of Dermatology [facility] Medicine [address] [place] [address], [address] [place] [address], [facility] [phone] documented in this encounter Visit Diagnoses Not on filedocumented in this encounter Care Teams Press Cleaner Relationship Specialty Start Date End Date Fran Mtz MD [address] [address] [address] [place] [phone] PCP - General Internal Medicine 05/27/24 documented as of this encounter
--- OUTSIDE RECORDS SUMMARY | 2025-02-04 15:32 | XMS_ITS | Clinical Summary ---
Author Organization [facility] Address [address] [place] [address] Care Team Providers Care Machine Stone Polisher Name Role Phone Fran Mtz MD Primary Care Provider Allergies Active Allergy Reactions Criticality Noted Date Comments Zeffeig-Fqr-Nza Reductase Inhibitors Flushing (skin) Low 12/06/2023 Medications [...] fissure 11/14/2023 Hemorrhoids 08/07/2013 Overview (02/21/2017): Hemorrhoids Surgical History Surgery Date Site/Laterality Comments KNEE ARTHROSCOPY Left Arthroscopy knee HERNIA REPAIR Herniorrhaphy HEMORRHOID SURGERY 2013 Hemorrhoidectomy Medical History Medical History Date Comments Depression Depression Hypertension Hypertension Psoriasis Family History Medical History Relation Name Comments Cancer Father Cancer Mother Breast cancer Other 1 Family history of Cancer, breast; Prostate cancer Other 2 Family histo ry of Cancer, prostate; Coronary artery disease Other 3 Fami ly history of Coronary artery disease; Relation Name Status Comments Father Mother Other 1 Other 2 Other 3 Social History Tobacco Use Types Packs/Day Years [...] on file Legal Sex Male 9:36 AM DIRECTOR OF TRAUMA Gender Identity Not on file Sexual Orientation Not on file Obstetrics History Last Filed Vital Signs Vital Sign Reading Time Taken Comments Blood Pressure 139/85 12/06/2023 1:17 PM DIRECTOR OF TRAUMA Pulse 65 12/06/2023 1:17 PM DIRECTOR OF TRAUMA Temperature 36.3 C (97.3 F) 12/06/2023 1:17 PM DIRECTOR OF TRAUMA Respiratory Rate 18 11/20/2023 9:29 AM DIRECTOR OF TRAUMA Oxygen Saturation 97% 12/06/2023 1:17 PM DIRECTOR OF TRAUMA Inhaled Oxygen Concentration - - Weight 82.3 kg (181 lb 8 oz) 12/06/2023 1:17 PM DIRECTOR OF TRAUMA Height 170.2 cm (5' 7 ) 12/06/2023 1:17 PM DIRECTOR OF TRAUMA Body Mass Index 28.43 12/06/2023 1:17 PM DIRECTOR OF TRAUMA Plan of Treatment Health Maintenance Due Date Last Done Comments Colon Cancer Screening-Colonoscopy 1955 Depression Screening 1955 Hepatitis C Screening 1953 DTaP/Tdap/Td Vaccine (1 - Tdap) 1964 Hepatitis B Screening 1971 Pneumococcal vaccine 65+ (1 of 1 - PCV) 2003 Zoster Vaccine (1 of 2) 2003 Abdominal Aortic Aneurysm (A AA) Screen 2018 Well Visit 65+ 2018 Covid-19 Vaccine ( season) 2024 10/18/2021, 01/29/2021, 01/01/2021 Influenza Vaccine (#1) 2024 10/01/2022, 2019 Fall Risk Assessment 11/20/2024 11/20/2023 Insurance MEDICARE MEDICARE COMMERCIAL GENERIC MEDICARE [employer] [place] Care Teams Machine Stone Polisher Relationship Specialty Start Date End Date Fran Mtz MD PCP - General 08/07/13
--- OUTSIDE RECORDS SUMMARY | 2025-02-04 15:33 | XMS_ITS | Clinical Summary ---
Author Organization [facility] [employer] Address [address] [address] Care Team Providers Care Range Manager Name Role Phone Fran Mtz MD Primary Care Provider [phone] Source Comments [facility] [employer],non-owned Affiliates and Associated Physician Practices is amultiple site organization consisting of ambulatory clinics and hospital sitesin [place], [place], [place] and [place]. This disclosure is being madepursuant to the Care Everywhere program and may not contain all information available regarding this patient. Last updated 18.[facility] [employer] Allergies Active Allergy Reactions Criticality Noted Date Comments Hmg-Coa-R Inhibitors Other Low 12/06/2023 Medications * Be aware that medications may not be up to date on this document. Alwaysverify current medications with the patient. Medication Sig Dispensed Refills Start Date End Date Status metoprolol succinate XL 24hr (Toprol XL) 25 MG tablet Take 1 (one) tablet by mouth Active lisinopril (Prinivil; Zestril) 40 MG tablet Take 1 (one) tablet by mouth once daily Active aspirin EC (Ecotrin) 81 MG tablet Take 1 (one) tablet by mouth once daily Active escitalopram (Lexapro) 10 MG tablet Take 3 (three) tablets by mouth once daily Active NIFEdipine CR 24hr (Adalat CC) 90 MG tablet Take 1 (one) tablet by mouth once daily Active ezetimibe (Zetia) 10 MG tablet Take 1 (one) tablet by mouth once daily 11/26/2023 Active hydroCHLOROthiazi de (Hydrodiuril) 25 MG tablet Take 1 (one) tablet by mouth once daily Active traZODone (Desyrel) 100 MG tablet Take 1 (one) tablet by mouth at bedtime 09/29/2024 Active valACYclovir (Valtrex) 1 GM tablet Take 1 (one) tablet by mouth 3 times daily Active celecoxib (CeleBREX) 200 MG capsule Take 1 (one) capsule by mouth 2 times daily 180 capsule 3 01/26/2025 Active celecoxib (CeleBREX) 200 MG capsule TAKE 1 CAPSULE BY MOUTH TWICE DAILY 60 capsule 5 12/29/2024 01/26/2025 Discontinued (Reorder) Active Problems Problem Noted Date Diagnosed Date Primary osteoarthritis of right knee 05/28/2024 Encounters Date Type Department Care Team Description 01/26/2025 Refill [facility] [address] [place] [phone] Yuri Wall MD Patient Requested Call (patient will like to ask if he may have a 90 capsule prescription of the celebrex instead of the 60 so that he doesn't have to go and pick the prescription up so often.) 12/29/2024 3:50 PM OPERATOR SUPPLY Office Visit [facility] [address] [place] [phone] Yuri Wall MD Primary osteoarthritis of right knee (Primary Dx) 12/27/2024 Refill [facility] [address] [place] [phone] Yuri Wall MD Refill Request from Last 3 Months Social History Tobacco Use Types Packs/Day Years Used Date Smoking Tobacco: Never Smokeless Tobacco: Never Tobacco Cessation:Counseling Given: Not Answered Alcohol Use Standard Drinks/Week Comments Yes 2 (1 standard drink = 0.6 oz pur e alcohol) PHQ-2 Answer Date Recorded Patient Health Questionnaire-2 Score 0 12/26/2024 Sex and Gender Information Value Date Recorded Sex Assigned at Not on file Gender Identity Not on file Sexual Orientation Not on file Last Filed Vital Signs Vital Sign Reading Time Taken Comments Blood Pressure - - Pulse - - Temperature - - Respiratory Rate - - Oxygen Saturation - - Inhaled Oxygen Concentration - - Weight 81.2 kg (179 lb) 05/27/2024 2:03 PM CDT Height 170.2 cm (5' 7 ) 05/27/2024 2:03 PM CDT Body Mass Index 28.04 05/27/2024 2:03 PM CDT Plan of Treatment Health Maintenance Due Date Last Done Comments COLOGUARD (AGES 45-75) - COL ON CA SCREENING 1955 COLON MONITORING 1953 COLONOSCOPY - COLON CA SCREENING 1953 CT COLONOGRAPHY - COLON CA SCREENING 1953 Colorectal Cancer Screening 1953 FIT - COLON CA SCREENING 1953 FLEX SIG - COLON CA SCREENING 1953 LIPID TESTING 1953 MEDICARE AWV 12 MONTHS 1953 HEPATITIS C SCREENING 06/24/1971 DTAP/TDAP/TD VACCINES (1 - Tdap) 1972 PNEUMOCOCCAL VACCINE 50+ (1 of 1 - PCV) 2003 ZOSTER VACCINE (1 of 2) 2003 SCREENING FOR DIABETES 05/27/2024 COVID-19 VACCINE (1 - 2023-2 5 season) 2024 INFLUENZA VACCINE (#1) 2024 Respiratory Syncytial Virus (RSV) Vaccine Pt: or over 60 yrs (1 - 1-dose 75+ series) 2028 DEPRESSION SCREENING Completed 12/29/2024, 05/27/2024 HEPATITIS B VACCINE Aged Out No longe r eligible based on patient's age to complete this topic HIB VACCINE Aged Out No longer eligi ble based on patient's age to complete this topic HPV VACCINE Aged Out No longer eligi ble based on patient's age to complete this topic MENINGOCOCCAL (Group B) VACCINE SHARED DECISION-MAKING Aged Out No longer eligible based on patient's age to complete this topic MENINGOCOCCAL GROUPS A/C/Y/W VACCINE Aged Out No longer eligible b ased on patient's age to complete this topic Care Teams Range Manager Relationship Specialty Start Date End Date Fran Mtz MD [address] [place] [phone] PCP - General Internal Medicine 05/27/24
--- OUTSIDE RECORDS SUMMARY | 2025-02-04 15:33 | XMS_ITS | Encounter Summary ---
Author Organization [facility] Address [address] [place] [address] Care Team Providers Care High Density Press Laborer Name Role Phone Fran Mtz MD Primary Care Provider [phone] Encounter Details Date Type Department Care Team (Late st Contact Info) Description 06/19/2024 Lab Requisition [facility] - DermPath Lab [address] [facility] [place] [phone] Jin Bradshaw Jr., MD [address] [place] [address] Social History Tobacco Use Types Packs/Day Years Used Date Smoking Tobacco: Never Smokeless Tobacco: Never Alcohol Use Standard Drinks/Week Comments Yes 2 (1 standard drink = 0.6 oz pur e alcohol) PHQ-2 Answer Date Recorded Patient Health Questionnaire-2 Score 0 05/20/2024 Sex and Gender Information Value Date Recorded Sex Assigned at Not on file Gender Identity Not on file Sexual Orientation Not on file documented as of this encounter Plan of Treatment Not on file documented as of this encounter Procedures Procedure Name Priority Date/Time Associated Diagnosis Comments DERMATOPATHOLOGY Routine 06/19/2024 3:33 AM CDT documented in this encounter Results * DERMATOPATHOLOGY (06/19/2024 3:33 AM CDT) Case Report Dermatopathology Report Case: [id number] Authorizing Provider: Jin Bradshaw Jr., MD Collected: 06/19/2024 03:33 AM Ordering Location: [facility] - Received: 06/19/2024 12:07 PM DermPath Lab Pathologist: Carine Gonzales MD Specimen: Skin, left proximal pretibial region 4:03 PM T DERMATOPATHOLOGY LABORATORY Final Diagnosis Specimen A. SKIN, left proximal pretibial region: PSORIASIFORM DERMATITIS (L44.8) (see microscopic description and comment) 4:03 PM T DERMATOPATHOLOGY LABORATORY Clinical History ISK vs SCC vs BCC vs BLK V psoiasis 4:03 PM T DERMATOPATHOLOGY LABORATORY Gross Description Specimen A: Received is one formalin filled container labeled with the patient's name and designated left proximal pretibial region. The specimen consists of a shave biopsy measuring 13x9x1 mm. Jar 0. 4:03 PM [facility] DERMATOPATHOLOGY LABORATORY Microscopic Description Specimen A. SKIN, left proximal pretibial region: There is psoriasiform hyperplasia of the epidermis with focal parakeratosis and spongiosis. There is a superficial, mainly lymphohistiocytic inflammatory infiltrate. Grocott's methenamine silver (GMS) stain fails to highlight fungal elements in the available sections. COMMENT: The histological differential diagnosis includes early / partially treated psoriasis, which is favored, and a chronic eczematous dermatitis. 4:03 PM [facility] DERMATOPATHOLOGY LABORATORY Disclaimer An external and internal positive and negative controls are appropriate for the histochemical, immunohistochemical and immunofluorescence stain(s) in this case (if any), except where stated explicitly. The performance characteristics of the stain(s) cited in this report were developed and its performance characteristic determined by the Dermatopathology Laboratory at [facility], directed by Dr. Adalgisa Gonzales. These tests need not be, and therefore are not, approved by the [place] Food and Drug Administration. The tests are used for clinical purposes. Billing Codes Specimen Charges Stain Charges 01817 1 69876 1 4:03 PM CDT DERMATOPATHOLOGY LABORATORY Embedded Images 4:03 PM T DERMATOPATHOLOGY LABORATORY Pathology/Cytolo gy TISSUE SPECIMEN FROM SKIN / Unknown 06/19/2024 3:33 AM CDT 06/19/2024 12:07 PM CDT Jin Bradshaw Jr., MD LAB - PATHOLOGY /CYTOLOGY ORDERABLES DERMATOPATHOLOGY LABORATORY [facility] - Department of Dermatology [facility] [address] [place] [address], [address] [phone] documented in this encounter Visit Diagnoses Not on filedocumented in this encounter Care Teams High Density Press Laborer Relationship Specialty Start Date End Date Fran Mtz MD [address] [place] [address] [address] [place] [phone] PCP - General Internal Medicine 05/27/24 documented as of this encounter
--- OUTSIDE RECORDS SUMMARY | 2025-02-04 15:33 | XMS_ITS | Continuity of Care Document ---
Author Organization [facility] Address [address] [place] [address] Phone Care Team Providers Care Presidential [employer] Chief Name Role Phone Najma Pereira OT Unavailable Unavailable Procedures Procedure Date Doc neg elder mal no plan Identified as not an unhealthy alcohol u ser Not identified as unhealthy alcohol via screening OT Evaluation Low Complexity Therapeutic Activities Therapeutic Exercise Therapeutic Exercise Progress Note Therapeutic Activities Neuromuscular Re-Ed Therapeutic Activities Neuromuscular Re-Ed Therapeutic Activities Neuromuscular Re-Ed Therapeutic Activities Neuromuscular Re-Ed Therapeutic Activities Neuromuscular Re-Ed Therapeutic Activities Neuromuscular Re-Ed Hot or Cold Pack Therapeutic Activities Neuromuscular Re-Ed Therapeutic Activities Neuromuscular Re-Ed Therapeutic Activities Neuromuscular Re-Ed Therapeutic Activities Neuromuscular Re-Ed Progress Note Therapeutic Activities Neuromuscular Re-Ed Therapeutic Activities Neuromuscular Re-Ed Therapeutic Activities Neuromuscular Re-Ed Therapeutic Activities Neuromuscular Re-Ed Therapeutic Activities Neuromuscular Re-Ed Therapeutic Activities Neuromuscular Re-Ed Progress Note Therapeutic Activities Neuromuscular Re-Ed Therapeutic Activities Neuromuscular Re-Ed Hot or Cold Pack Therapeutic Activities Neuromuscular Re-Ed Hot or Cold Pack Therapeutic Activities Neuromuscular Re-Ed Hot or Cold Pack Therapeutic Activities Neuromuscular Re-Ed Therapeutic Activities Neuromuscular Re-Ed Manual Therapy Therapeutic Activities Neuromuscular Re-Ed Hot or Cold Pack Therapeutic Activities Neuromuscular Re-Ed Progress Note Therapeutic Activities Neuromuscular Re-Ed Therapeutic Activities Neuromuscular Re-Ed Therapeutic Activities Neuromuscular Re-Ed Therapeutic Activities Neuromuscular Re-Ed Therapeutic Activities Neuromuscular Re-Ed Therapeutic Activities Remote therapeutic monitor initial setup Remote therapeutic monitor MSK each 30d Therapeutic Activities Neuromuscular Re-Ed Therapeutic Activities Neuromuscular Re-Ed Therapeutic Activities Neuromuscular Re-Ed Progress Note Therapeutic Activities Neuromuscular Re-Ed Therapeutic Activities Neuromuscular Re-Ed Therapeutic Activities Neuromuscular Re-Ed Therapeutic Activities Neuromuscular Re-Ed Manual Therapy Therapeutic Activities Neuromuscular Re-Ed Manual Therapy Therapeutic Activities Neuromuscular Re-Ed Progress Note Therapeutic Activities Neuromuscular Re-Ed Therapeutic Activities Neuromuscular Re-Ed Therapeutic Activities Neuromuscular Re-Ed Manual Therapy Therapeutic Activities Neuromuscular Re-Ed Manual Therapy Doc neg elder mal no plan Identified as not an unhealthy alcohol u ser Not identified as unhealthy alcohol via screening OT Evaluation High Complexity Therapeutic Activities Neuromuscular Re-Ed Orthotic Mgmt and Training Therapeutic Activities Neuromuscular Re-Ed Therapeutic Activities Neuromuscular Re-Ed Therapeutic Exercise Therapeutic Activities Neuromuscular Re-Ed Therapeutic Exercise Therapeutic Activities Neuromuscular Re-Ed Therapeutic Activities Neuromuscular Re-Ed Hot or Cold Pack Therapeutic Exercise Therapeutic Activities Neuromuscular Re-Ed Therapeutic Exercise Hot or Cold Pack Progress Note Therapeutic Activities Neuromuscular Re-Ed Therapeutic Exercise Hot or Cold Pack Therapeutic Activities Neuromuscular Re-Ed Therapeutic Exercise Manual Therapy Hot or Cold Pack Therapeutic Activities Neuromuscular Re-Ed Therapeutic Exercise Hot or Cold Pack Therapeutic Activities Neuromuscular Re-Ed Therapeutic Exercise Hot or Cold Pack Therapeutic Activities Neuromuscular Re-Ed Hot or Cold Pack Therapeutic Exercise Neuromuscular Re-Ed Therapeutic Exercise Hot or Cold Pack Therapeutic Activities Neuromuscular Re-Ed Therapeutic Exercise Hot or Cold Pack Neuromuscular Re-Ed Therapeutic Exercise Hot or Cold Pack Therapeutic Activities Neuromuscular Re-Ed Therapeutic Exercise Hot or Cold Pack Manual Therapy Doc neg elder mal no plan PT Evaluation Moderate Complexity Therapeutic Activities Neuromuscular Re-Ed Hot or Cold Pack Advance Directives Directive Yes / No Effective Date File Name No Information Encounters Encounter Description Practice Location Reason(s) For Visit Diagnoses Date Provider Providers Copied on Encounter [facility] [facility] [address], [place], [id number], tel:[phone] [place] No Information 5 Randall Yao. . Referring Provider: Lexy Sun, [address] [facility] [address], [place], [address]. tel:[phone] [facility], [place], [place], [address], tel:[phone] [place] No Information 4 Toni Brody. . Referring Provider: Tessie Blackmon, [address] [place] [address] [address], [place], [address]. tel:[phone] [facility] [address], [place], [place], [address], [place] tel:[phone] [place] No Information Jul- 4 Muñoz Mary Grace. . Referring Provider: Tessie Blackmon, [address] [place] [address] [address], [place], [address]. tel:+[phone] [facility], [address], [place], [place], [address], [place] tel:[phone] [place] No Information 4 Muñoz Mary Grace. . Referring Provider: Tessie Blackmon, [address] [place] [address] [address], [place], [address]. tel:5330 [facility] [address], [place], [place], [address], [place] tel:[phone] [place] No Information Jul-0 4 Muñoz Mary Grace. . Referring Provider: Tessie Blackmon, [address] [place] [address] [address], [place], [address]. tel:5330 [facility], [address], [place], [place], [address], [place] tel:[phone] [place] No Information 4 Muñoz Mary Grace. . Referring Provider: Tessie Blackmon, [address] [place] [address] [address], [place], [address]. tel:[phone] [facility] [address], [place], [place], [address], [place] tel:[phone] [place] No Information 4 Muñoz Mary Grace. . Referring Provider: Tessie Blackmon, [address] [place] [address] [address], [place], [address]. tel:5330 [facility], [place], [place], [address], [place] tel:[phone] [place] No Information 4 Dereck Mattea. . Referring Provider: Tessie Blackmon, [address] [place] [address] [address], [place], [address]. tel:[address] [place] [address] [address], [place], [place], [address], tel:[phone] [place] No Information 4 Muñoz Mary Grace. . Referring Provider: Tessie Blackmon, [address] [place] [address] [address], [place], [address]. tel:5330 [facility] [address], [place], [place], [address], [place] tel:[phone] [facility] No Information 4 Muñoz Mary Grace. . Referring Provider: Tessie Blackmon, [address] [place] [address] [address], [place], [address]. tel:[address] [place] [address] [address], [place], [place], [address], [place] tel:[phone] [place] No Information 4 Muñoz Mary Grace. . Referring Provider: Tessie Blackmon, [address] [place] [address] [address], [place], [address]. tel:[address] [place] [address] [facility] [address], [place], [place], [address], [place] tel:[phone] [place] No Information 4 Muñoz Mary Grace. . Referring Provider: Tessie Blackmon, [address] [place] [address] [address], [place], [address]. tel:5330 [facility] [address], [place], [place], [address], [place] tel:[phone] [place] No Information 4 Muñoz Mary Grace. . Referring Provider: Tessie Blackmon, [address] [place] [address] [address], [place], [address]. tel:+[phone] [facility] [address], [place], [place], [address], [place] tel:[phone] [place] No Information 2 4 Muñoz Mary Grace. . Referring Provider: Tessie Blackmon, [address] [place] [address] [address], [place], [address]. tel:[phone] [facility] [address], [place], [place], [address], [place] tel:[phone] [place] No Information Apr- 4 Muñoz Mary Grace. . Referring Provider: Tessie Blackmon, [address] [place] [address] [address], [place], [address]. tel:[phone] [place] [address], [address], [place], [place], [address], [place] tel:[phone] [place] No Information 4 Muñoz Mary Grace. . Referring Provider: Tessie Blackmon, [address] [place] [address] [address], [place], [address]. tel:[phone] [place] [address] [facility] [address], [place], [place], [address], [place] tel:[phone] [place] No Information 0 4 Muñoz Mary Grace. . Referring Provider: Tessie Blackmon, [address] [place] [address] [address], [place], [address]. tel:[phone] [facility] [address], [place], [place], [address], [place] tel:[phone] [place] No Information 4 Muñoz Mary Grace. . Referring Provider: Tessie Blackmon, [address] [place] [address] [address], [place], [address]. tel:[phone] [facility], [address], [place], [place], [address], [place] tel:[phone] [place] No Information 2 4 Muñoz Mary Grace. . Referring Provider: Tessie Blackmon, [address] [place] [address] [address], [place], [address]. tel:[phone] [facility] [address] [place], [place] [address], [place], [place], [address], tel:[phone] [place] No Information May-1 5-202 4 Muñoz Mary Grace. . Referring Provider: Tesise Blackmon, [address] [place] [address] [address], [place], [address]. tel:[phone] [address], [place], [place], [address], [place] tel:[phone] [place] No Information May-0 8-202 4 Muñoz Mary Grace. . Referring Provider: Tessie Blackmon, [address] [place] [address] [address], [place], [address]. tel:[phone] [address], [place], [place], [address], tel:[phone] [place] No Information May-0 6-202 4 Muñoz Mary Grace. . Referring Provider: Tessie Blackmon, [address] [place] [address] [address], [place], [address]. tel:[phone] [facility] [address] [place] [address], [place], [place], [address], tel:[phone] [place] No Information May-0 1-202 4 Muñoz Mary Grace. . Referring Provider: Tessie Blackmon, [address] [place] [address] [address], [place], [address]. tel:[phone] [facility] [address] [place], [place] [address], [place], [place], [address], [place] tel:[phone] [place] Primary osteoarthritis, left wristEffusion, left handMuscle weakness (generalized)Pain in left wristStiffness of left hand, not elsewhere classifiedStiffnes s of left wrist, not elsewhere classified Apr-3 0-202 4 Muñoz Mary Grace. . Referring Provider: Tessie Blackmon, [address] [place] [address] [address], [place], [address]. tel:[phone] [place] [address], [address], [place], [place], [address], [place] tel:[phone] [place] No Information Apr-2 4 Muñoz Mary Grace. . Referring Provider: Tessie Blackmon, [facility] [address], [place], [address]. tel:5330 [facility] [address], [place], [place], [address], [place] tel:[phone] [place] No Information Apr-2 - 4 Muñoz Mary Grace. . Referring Provider: Tessie Blackmon, [facility] [address], [place], [address]. tel:[address] [place] [address], [address], [place], [place], [address], [place] tel:[phone] [place] No Information Feb-2 4 Muñoz Mary Grace. . Referring Provider: Tessie Blackmon, [facility] [address], [place], [address]. tel:5330 [facility], [address], [place], [place], [address], [place] tel:[phone] [place] No Information Feb-1 4 Muñoz Mary Grace. . Referring Provider: Tessie Blackmon, [facility] [address], [place], [address]. tel:5330 [facility] [address], [place], [place], [address], [place] tel:[phone] [place] No Information Feb-1 4 Muñoz Mary Grace. . Referring Provider: Tessie Blackmon, [facility] [address], [place], [address]. tel:[phone] [facility], [address], [place], [place], [address], [place] tel:[phone] [place] No Information Apr-1 0- 4 Muñoz Mary Grace. . Referring Provider: Tessie Blackmon, [address] [place] [address] [address], [place], [address]. tel:[phone] [facility] [address] [place] [address], [place], [place], [address], [place] tel:[phone] [facility] No Information Apr-0 8- 4 Hasanonhan Ch. . Referring Provider: Tessie Blackmon, [address] [place] [address] [address], [place], [address]. tel:[phone] [facility] [address] [place], [place] [address], [place], [place], [address], [place] tel:[phone] [place] No Information Apr-0 3 4 Toni Brody. . Referring Provider: Tessie Blackmon, [address] [place] [address] [address], [place], [address]. tel:[phone] [facility] [address] [place] [address], [place], [place], [address], [place] tel:[phone] [place] No Information Apr-0 - 4 Toni Brody. . Referring Provider: Tessie Blackmon, [address] [place] [address] [address], [place], [address]. tel:[phone] [facility] [address] [place] [address] [address], [place], [place], [address], [place] tel:[phone] [facility] Primary osteoarthritis, left wristEffusion, left handMuscle weakness (generalized)Pain in left wristStiffness of left hand, not elsewhere classifiedStiffnes s of left wrist, not elsewhere classified Mar-3 4 Toni Brody. . Referring Provider: Tessie Blackmon, [address] [place] [address] [address], [place], [address]. tel:[phone] [facility] [address] [place] [address] [address], [place], [place], [address], [place] tel:[phone] [place] No Information Mar-3 4 Johann Larsen. . Referring Provider: Tessie Blackmon, [address] [place] [address] [address], [place], [address]. tel:[phone] [facility], [address], [place], [place], [address], [place] tel:[phone] [facility] No Information Mar-2 7-202 4 Muñoz Mary Grace. . Referring Provider: Tessie Blackmon, [facility] [address], [place], [address]. tel:[phone] [facility] [address], [place], [place], [address], [place] tel:[phone] [place] No Information Mar-2 5-202 4 Muñoz Mary Grace. . Referring Provider: Tessie Blackmon, [facility] [address], [place], [facility]. tel:[phone] [facility], [address], [place], [place], [address], [place] tel:[phone] [place] No Information Mar-2 0-202 4 Muñoz Mary Grace. . Referring Provider: Tessie Blackmon, [facility] [address], [place], [address]. tel:[phone] [facility], [address], [place], [place], [address], [place] tel:[phone] [facility] No Information Mar-1 8-202 4 Muñoz Mary Grace. . Referring Provider: Tessie Blackmon, [facility] [address], [place], [address]. tel:[phone] [facility], [address], [place], [place], [address], [place] tel:[phone] [place] No Information Mar-1 4-202 4 Muñoz Mary Grace. . Referring Provider: Tessie Blackmon, [facility] [address], [place], [address]. tel:[phone] [facility], [address], [place], [place], [address], [place] tel:[phone] [place] No Information Mar-1 1-202 4 Muñoz Mary Grace. . Referring Provider: Tessie Blackmon, [address] [place] [address] [address], [place], [address]. tel:[phone] [facility] [address], [place], [place], [address], [place] tel:[phone] [facility] No Information Mar-0 8- 4 Muñoz Mary Grace. . Referring Provider: Tessie Blackmon, [address] [place] [address] [address], [place], [address]. tel:+[phone] [facility] [address], [place], [place], [address], [place] tel:[phone] [place] No Information Mar-0 6 4 Muñoz Mary Grace. . Referring Provider: Tessie Blackmon, [address] [place] [address] [address], [place], [address]. tel:[phone] [facility] [address], [place], [place], [address], [place] tel:[phone] [place] No Information Feb-2 4 Muñoz Mary Grace. . Referring Provider: Tessie Blackmon, [address] [place] [address] [address], [place], [address]. tel:[phone] [facility] [address], [place], [place], [address], [place] tel:[phone] [place] No Information b-2 4 Muñoz Mary Grace. . Referring Provider: Tessie Blackmon, [address] [place] [address] [address], [place], [address]. tel:[phone] [facility] [address], [place], [place], [address], [place] tel:[phone] [place] No Information b- 4 Muñoz Mary Grace. . Referring Provider: Tessei Blackmon, [address] [place] [address] [address], [place], [address]. tel:[phone] [facility] [address], [place], [place], [address], [place] tel:[phone] [place] No Information b1 - 4 Muñoz Mary Grace. . Referring Provider: Tessie Blackmon, [address] [facility] [address], [place], [address]. tel:[phone] [facility], [address], [place], [place], [address], [place] tel:[phone] [facility] No Information b 4 Muñoz Mary Grace. . Referring Provider: Tessie Blackmon, [address] [facility] [address], [place], [address]. tel:[phone] [facility] [address], [place], [place], [address], [place] tel:[phone] [facility] No Information b0 4 Muñoz Mary Grace. . Referring Provider: Tessie Blackmon, [address] [place] [address] [address], [place], [address]. tel:[phone] [facility], [address], [place], [place], [address], [place] tel:[phone] [place] No Information 3 David Barba. . Referring Provider: Lee Winn, [place], [address]. tel:[phone] [facility], [place], [place], [address], [place] tel:[phone] [place] No Information 0- 3 José Antonio Lao. [address] [facility], [address], [place], [address], [place]. tel:[phone] Referring Provider: Lee Winn, [place], [address]. tel:[phone] [facility], [place], [place], [address], [place] tel:[phone] [place] No Information Feb-0 - 3 David Barba. . Referring Provider: Lee Winn, [address] [place], [address]. tel:[phone] [place] [address] [place] [address], [id number], tel:[phone] [facility] No Information Apr-0 3-202 3 Short Catherine. . Referring Provider: Lee Winn, [address] [place], [address]. tel:[phone] [place] [address] [place] [address], [place], [place], [address], [place] tel:[phone] [place] No Information Mar-3 1-202 3 Short Catherine. . Referring Provider: Lee Winn, [address] [place], [address]. tel:[phone] [place] [address] [place] [address], [id number], [place] tel:[phone] [place] No Information Mar-3 0-202 3 José Antonio Lao. [address] [place] [address], [address] [address], . tel:[phone] Referring Provider: Lee Winn, [place], [address]. tel:[phone] [place] [address] [place] [address], [id number], [place] tel:[phone] [place] No Information Mar-2 7-202 3 Short Catherine. . Referring Provider: Lee Winn, [place], [address]. tel:[phone] [place] [address], [id number], [place] tel:[phone] [facility] No Information Mar-2 4-202 3 José Antonio Lao. [address] [facility], [address] [address], . tel:[phone] Referring Provider: Lee Winn [address] [place], [address]. tel:[phone] [facility], [address] [facility], [place], [place], [address], [place] tel:[phone] [place] No Information Mar-2 2-202 3 Hisky Jameson. . Referring Provider: Lee Winn [address] [place], [address]. tel:[phone] [facility] [address] [facility], [place], [place], [address], [place] tel:[phone] [facility] No Information Mar-2 0-202 3 José Antonio Lao. [address] [facility], [address], [place], [place], [facility], [place]. tel:[phone] Referring Provider: Lee Winn [address] [place], [address]. tel:[phone] [facility], [address], [id number], [place] tel:[phone] [place] No Information Mar-1 6-202 3 José Antonio Lao. [address] [facility], [address], [place], [place], [facility], [place]. tel:[phone] Referring Provider: Lee Winn [address] [place], [address]. tel:[phone] [facility], [address], [id number], [place] tel:[phone] [place] No Information Mar-1 5- 3 ky Jameson. . Referring Provider: Lee Winn [address] [place], [address]. tel:[phone] [place] [address], [id number], [place] tel:[phone] [place] No Information Mar-1 3-202 3 José Antonio Lao. [address] [facility], [address], [place], [place], [facility], [place]. tel:[phone] Referring Provider: Lee Winn [address] [place], [address]. tel:[phone] [facility] [address], [id number], tel:[phone] [facility] No Information Mar-0 9-202 3 Short Catherine. . Referring Provider: Lee Winn [address] [place] [address], [address]. tel:[phone] [facility] [address], [id number], tel:[phone] [facility] No Information Mar-0 7-202 3 Deathomas Lao. [address] [facility], [address], [place], [place], [facility], . tel:[phone] Referring Provider: [place], [address]. tel:[phone] [facility] [address], [id number], tel:[phone] [facility] No Information Mar-0 6- 3 Hisky Jameson. . Referring Provider: Lee Winn [address] [place] [address], [address]. tel:[phone] Family History Family Member Type Diagnosis Age At Onset No Information Payers Payer name Insurance type Covered democrat ID Authorseana tilouis(s) Medicare [place] [id number] [employer] CI [id number] Social History Type Description Quantity Date Captured Comments Alcohol Use Details Unknown Caffeine Use Details Unknown Tobacco Use Status Current non-smoker Smoking Status Never smoker Non-Smoking Tobacco Use Details : No Details Available : No Details Available Sex Male Chief Complaint And Reason For Visit No Information Reason For Referral Reason For Referral No Information Plan Of Treatment Date Type Action Status Referral Ordered: Referrals: Specialist. Evaluate and Treat (related to Adjustment disorder with depressed mood) ordered Referral Ordered: Depression: Depression management program timeframe: 1 Day. (related to Depression) ordered Referral Ordered: Clinical Psychology (related to Depression) ordered Appointment Yuri Fajardo- 2nd Visit B OOKED Appointment Yuri Fajardo BOOKED Appointment Yuri Fajardo BOOKED Appointment Yuri Fajardo BOOKED History Of Present Illness Encounter Date Complaint History Of Prese nt Illness No Information Functional Status Date Functional Assessmen t No Information Instructions Date Instruction Additional Infor mation Giving encouragement to exercise Related to Overweight Giving encouragement to exercise Related to Overweight Assessments Type Assessment Date No Information Patient Care Teams Name Effective Dates (start - stop) Status Members No Information
--- OUTSIDE RECORDS SUMMARY | 2025-02-04 15:33 | XMS_ITS | Clinical Summary ---
Author Organization [facility] Address [address] [place] [address] Phone Care Team Providers Care Flat Cutter Name Role Phone Fran Mtz MD Primary Care Provider [phone] Allergies No known active allergies Medications lisinopril (PRINIVIL, ZESTRIL) 20 MG Tablet TAKE 1 TABLET BY MOUTH ONCE DAILY 0 Active escitalopram (LEXAPRO) 20 MG Tablet TAKE 1 & 1 2 (ONE & ONE HALF) TABLETS BY MOUTH ONCE DAILY 0 Active Apremilast (OTEZLA PO) Take by mouth. Act molly hydroCHLOROthia zide 25 MG Tablet Take by mouth. 2 Active Naproxen Sodium 220 MG Capsule Take 1 Tablet by mouth. Active NIFEdipine CR (PROCARDIA-XL) 90 MG TABLET SR 24 HR nifedipine 90 mg tablet extended release 2 Active testosterone cypionate (DEPO-TESTOSTER ONE) 200 MG/ML Solution testosterone cypionate 200 mg/mL oil 0 Active methylPREDNISol one (Medrol) 4 MG Tablet Therapy PackIndications :Viral sinusitis Use as per instructions on package. 21 Tablet 3 Active Active Problems Problem Noted Date Diagnosed Date Benign essential hypertension 10/29/2020 Immunizations Immunization Administration Dates Next Due TDAP Vaccine 10/30/2024 Social History Tobacco Use Types Packs/Day Years Used Date Smoking Tobacco: Never Smokeless Tobacco: Never Tobacco Cessation:Counseling Given: Not Answered Alcohol Use Standard Drinks/Week Comments Yes 0 (1 standard drink = 0.6 oz pur e alcohol) Sexually Active Control Partners Comments Not Currently Sex and Gender Information Value Date Recorded Sex Assigned at Not on file Legal Sex Male 3:49 PM CDT Gender Identity Not on file Sexual Orientation Not on file Last Filed Vital Signs Vital Sign Reading Time Taken Comments Blood Pressure 150/87 10/30/2024 6:15 PM BARIATRIC PHYSICIAN Pulse 50 10/30/2024 6:15 PM BARIATRIC PHYSICIAN Temperature 36.3 C (97.3 F) 10/30/2024 10:43 AM BARIATRIC PHYSICIAN Respiratory Rate 16 10/30/2024 5:00 PM BARIATRIC PHYSICIAN Oxygen Saturation 95% 10/30/2024 6:15 PM BARIATRIC PHYSICIAN Inhaled Oxygen Concentration - - Weight 81.6 kg (180 lb) 10/30/2024 4:45 PM BARIATRIC PHYSICIAN Height 170.2 cm (5' 7 ) 10/30/2024 4:45 PM BARIATRIC PHYSICIAN Body Mass Index 28.19 10/30/2024 4:45 PM BARIATRIC PHYSICIAN Plan of Treatment Health Maintenance Due Date Last Done Comments Hepatitis C Virus (HCV) Screening 1955 Colonoscopy 1998 Colorectal Cancer Screening 1998 Cologuard 2003 Immunochemical Fecal Occult Blood 2003 Zoster Immunization (1 of 2) 2003 Influenza Immunization (#1) 2024 02/2 11/2023, 10/01/2022, 08/26/2020 SARS-COV-2 Immunization ( season) 2024 10/18/2021, 02/17/2021, 01/29/2021, Additional history exists Respiratory Syncytial Virus (RSV) Immunization (Adult) (1 - 1-dose 75+ series) 2028 Td Immunization Every 10 Years (Adults With 1 Tdap) 10/30/2034 10/30/2024 Pneumococcal Immunization (50+ years) Completed 01/22/2023, 07/28/2021 Pneumococcal Immunization Combined Discontinued 01/22/2023, 07/28/2021 DTaP/Tdap/Td Immunization Discontinued 10/30/2024 TdaP Immunization Discontinued 10/30/2024 Hepatitis B Immunization Aged Out No longer eligible based on patient's age to complete this topic Meningococcal Immunization (ACWY) Aged Out No longer eligible based on patient's age to complete this topic Rotavirus Immunization Aged Out No lo nger eligible based on patient's age to complete this topic Insurance MEDICARE [facility] [employer] Care Teams Flat Cutter Relationship Specialty Start Date End Date Fran Mtz MD [address] [facility] [address] [place] [address] PCP - General Internal Medicine 04/30/20
== END 2025-02-04 13:53 | disposition home or self-care (01) ==
PROVIDERS: Visit Provider Plastic Surgery
DX: S56.512A Strain of other extensor muscle, fascia and tendon at forearm level, left arm, initial encounter (principal); M19.032 Primary osteoarthritis, left wrist; Z98.890 Other specified postprocedural states; X58.XXXA Exposure to other specified factors, initial encounter
CPT/HCPCS: 73221

== ENCOUNTER 2025-10-01 01:43 | Day surgery (SDC) | payer MEDICARE, SELFPAY ==
[2025-09-22 08:15] VITALS: BMI 28.2
--- OUTSIDE RECORDS SUMMARY | 2025-10-01 01:46 | XMS_ITS | Encounter Summary ---
Author Organization [facility] Address [address] [place] [address] Care Team Providers Care Department Clerk Name Role Phone Fran Mtz MD Primary Care Provider [phone] Encounter Details Date Type Department Care Team (Late st Contact Info) Description 06/19/2024 Lab Requisition [facility] - DermPath Lab [address] [facility] [place] [id number] Jin Bradshaw Jr., MD [address] [facility] [address] [place] [address] Social History Tobacco Use Types Packs/Day Years Used Date Smoking Tobacco: Never Smokeless Tobacco: Never Alcohol Use Standard Drinks/Week Comments Yes 2 (1 standard drink = 0.6 oz pur e alcohol) PHQ-2 Answer Date Recorded Patient Health Questionnaire-2 Score 0 05/20/2024 Sex and Gender Information Value Date Recorded Sex Assigned at Not on file Legal Sex Male 2:38 PM CDT Gender Identity Not on file Sexual Orientation Not on file documented as of this encounter Plan of Treatment Upcoming Encounters Date Type Department Care Team (Latest Contact Info) Description 10/07/2025 10:30 AM DATA ANALYTICS DEVELOPER [facility] [address] [place] [address] 11/02/2025 10:50 AM DATA ANALYTICS DEVELOPER Hospital Encounter [facility] - Perioperative Surgery [address] [place] [address] [place] [address] [facility] [address] [place] [address] Surgery General 11/02/2025 10:50 AM DATA ANALYTICS DEVELOPER - 11/02/2025 1:09 PM DATA ANALYTICS DEVELOPER Surgery [facility] - Perioperative Surgery [address] [place], [place] [id number] [place] [address] [facility] [address] [place] [address] ARTHROPLASTY RIGHT TOTAL KNEE Scheduled Procedures Name Priority Associated Diagnoses Date/Ti me ARTHROPLASTY TOTAL KNEE Primary osteoarthritis of right knee 11/02/2025 10:50 AM DATA ANALYTICS DEVELOPER documented as of this encounter Procedures Procedure Name Priority Date/Time Associated Diagnosis Comments DERMATOPATHOLOGY Routine 06/19/2024 3:33 AM CDT documented in this encounter Results * DERMATOPATHOLOGY (06/19/2024 3:33 AM CDT) Case Report Dermatopathology Report Case: [id number] Authorizing Provider: Jin Bradshaw Jr., MD Collected: 06/19/2024 03:33 AM Ordering Location: [facility] - Received: 06/19/2024 12:07 PM DermPath Lab Pathologist: Carine Gonzales MD Specimen: Skin, left proximal pretibial region 4 4:03 PM CDT DERMATOPATHOLOGY LABORATORY Final Diagnosis Specimen A. SKIN, left proximal pretibial region: PSORIASIFORM DERMATITIS (L44.8) (see microscopic description and comment) 4 4:03 PM CDT DERMATOPATHOLOGY LABORATORY at 1603 CDT Clinical History ISK vs SCC vs BCC vs BLK V psoiasis 4 4:03 PM CDT DERMATOPATHOLOGY LABORATORY Gross Description Specimen A: Received is one formalin filled container labeled with the patient's name and designated left proximal pretibial region. The specimen consists of a shave biopsy measuring 13x9x1 mm. Jar 0. 4 4:03 PM CDT DERMATOPATHOLOGY LABORATORY Microscopic Description Specimen A. SKIN, [...] is favored, and a chronic eczematous dermatitis. 4 4:03 PM CDT DERMATOPATHOLOGY LABORATORY Disclaimer An external and internal positive and negative controls are appropriate for the histochemical, immunohistochemical and immunofluorescence stain(s) in this case (if any), except where stated explicitly. The performance characteristics of the stain(s) cited in this report were developed and its performance characteristic determined by the Dermatopathology Laboratory at [facility], directed by Dr. Adalgisa Gonzales. These tests need not be, and therefore are not, approved by the [place] Food and Drug Administration. The tests are used for clinical purposes. Billing Codes Specimen Charges Stain Charges 64125 1 91488 1 4 4:03 PM CDT DERMATOPATHOLOGY LABORATORY Embedded Images 4 4:03 PM CDT DERMATOPATHOLOGY LABORATORY Pathology/Cytolo gy TISSUE SPECIMEN FROM SKIN / Unknown 06/19/2024 3:33 AM CDT 06/19/2024 12:07 PM CDT Jin Bradshaw Jr., MD LAB - PATHOLOGY/CYTOLOG Y ORDERABLES Final Result DERMATOPATHOLOGY LABORATORY [facility] - Department of Dermatology [facility] Medicine [address] [place] [address], [address] [phone] documented in this encounter Visit Diagnoses Not on filedocumented in this encounter Care Teams Department Clerk Relationship Specialty Start Date End Date Fran Mtz MD [facility] [address] [place] [address] PCP - General Internal Medicine 05/27/24 documented as of this encounter
--- OUTSIDE RECORDS SUMMARY | 2025-10-01 01:46 | XMS_ITS | Clinical Summary ---
Author Organization [facility] Address [address] [place] [address] Care Team Providers Care Recordings Librarian Name Role Phone Fran Mtz MD Primary Care Provider Allergies Active Allergy Reactions Criticality Noted Date Comments Fzuznst-Xsk-Uli Reductase Inhibitors Flushing (skin) Low 12/06/2023 Medications [...] Legal Sex Male 9:36 AM DIRECTOR OF OPERATIONS Gender Identity Not on file Sexual Orientation Not on file Last Filed Vital Signs Vital Sign Reading Time Taken Comments Blood Pressure 139/85 12/06/2023 1:17 PM DIRECTOR OF OPERATIONS Pulse 65 12/06/2023 1:17 PM DIRECTOR OF OPERATIONS Temperature 36.3 C (97.3 F) 12/06/2023 1:17 PM DIRECTOR OF OPERATIONS Respiratory Rate 18 11/20/2023 9:29 AM DIRECTOR OF OPERATIONS Oxygen Saturation 97% 12/06/2023 1:17 PM DIRECTOR OF OPERATIONS Inhaled Oxygen Concentration - - Weight 82.3 kg (181 lb 8 oz) 12/06/2023 1:17 PM DIRECTOR OF OPERATIONS Height 170.2 cm (5' 7) 12/06/2023 1:17 PM DIRECTOR OF OPERATIONS Body Mass Index 28.43 12/06/2023 1:17 PM DIRECTOR OF OPERATIONS Plan of Treatment Health Maintenance Due Date Last Done Comments Colon Cancer Screening-Colonoscopy 1955 Depression Screening 1953 Hepatitis C Screening 1953 Hepatitis B Screening 1971 Pneumococcal vaccine 65+ (1 of 1 - PCV) 2003 Zoster Vaccine (1 of 2) 2003 Abdominal Aortic Aneurysm (A AA) Screen 2018 Well Visit 65+ 2018 Fall Risk Assessment 11/20/2024 11/20/2023 Covid-19 Vaccine ( season) 2025 10/18/2021, 01/29/2021, 01/01/2021 Influenza Vaccine (#1) 2025 10/01/2022, 2019 DTaP/Tdap/Td Vaccine (2 - Td or Tdap) 10/30/203410/2024 Insurance MEDICARE MEDICARE [facility] MEDICARE [facility] Care Teams Recordings Librarian Relationship Specialty Start Date End Date Fran Mtz MD PCP - General 08/07/13
--- OUTSIDE RECORDS SUMMARY | 2025-10-01 01:46 | XMS_ITS | Clinical Summary ---
Author Organization [facility] Address [address] [place] [address] Phone Care Team Providers Care Internal Wholesaler Name Role Phone Fran Mtz MD Primary Care Provider [phone] Allergies Active Allergy Reactions Criticality Noted Date Comments Statins Other (see Comments) Low 12/06/2023 Medications lisinopril (PRINIVIL, ZESTRIL) 20 MG Tablet [...] instructions on package. 21 Tablet 3 Active aspirin EC 81 MG Tablet Delayed Response Take 1 Tablet by mouth daily. Active celecoxib (CeleBREX) 200 MG Capsule Take 200 mg by mouth. 5 Active metoprolol Succinate (TOPROL-XL) 25 MG TABLET SR 24 HR Take 25 mg by mouth nightly. Active ezetimibe (ZETIA) 10 MG Tablet Take 1 Tablet by mouth daily. Active traZODone (DESYREL) 100 MG Tablet take 1 tablet by mouth every day at bedtime Active methylPREDNISol one (Medrol) 4 MG Tablet Therapy PackIndications :Acute cough Use as per instructions on package. 21 Tablet Active Active Problems Problem Noted Date Diagnosed Date Benign essential hypertension 10/29/2020 Immunizations Immunization Administration Dates Next Due TDAP Vaccine 10/30/2024 Social History Tobacco Use Types Packs/Day Years Used Date Smoking Tobacco: Never Smokeless Tobacco: Never Tobacco Cessation:Counseling Given: Not Answered Alcohol Use Standard Drinks/Week Comments Not Currently 0 (1 standard drink = 0.6 oz pur e alcohol) Sexually Active Control Partners Comments Not Currently Sex and Gender Information Value Date Recorded Sex Assigned at Not on file Legal Sex Male 3:49 PM CDT Gender Identity Not on file Sexual Orientation Not on file Last Filed Vital Signs Vital Sign Reading Time Taken Comments Blood Pressure 140/76 04/19/2025 9:15 AM CDT Pulse 52 04/19/2025 9:15 AM CDT Temperature 36.4 C (97.6 F) 04/19/2025 9:15 AM CDT Respiratory Rate 16 04/19/2025 9:15 AM CDT Oxygen Saturation 99% 04/19/2025 9:15 AM CDT Inhaled Oxygen Concentration - - Weight 81.6 kg (180 lb) 10/30/2024 4:45 PM SIMULATION SPECIALIST Height 170.2 cm (5' 7) 10/30/2024 4:45 PM SIMULATION SPECIALIST Body Mass Index 28.19 10/30/2024 4:45 PM SIMULATION SPECIALIST Plan of Treatment Health Maintenance Due Date Last Done Comments Hepatitis C Virus (HCV) Screening 1953 Cologuard 1998 Colonoscopy 1998 Colorectal Cancer Screening 1998 Immunochemical Fecal Occult Blood 1998 Pneumococcal Immunization (50+ years) (1 of 1 - PCV) 2003 Zoster Immunization (1 of 2) 2003 Medicare Initial AWV [id number] 06/19/2019 Influenza Immunization (#1) 07/20/202508/20, 01/09/2024, 10/01/2022, Additional history exists SARS-COV-2 Immunization ( season) 2025 10/18/2021, 01/29/2021, 01/01/2021 Respiratory Syncytial Virus (RSV) Immunization (Adult) (1 - 1-dose 75+ series) 2028 Td Immunization Every 10 Years (Adults With 1 Tdap) 10/30/2034 10/30/2024 DTaP/Tdap/Td Immunization Discontinued 10/30/2024 TdaP Immunization Discontinued 10/30/2024 Hepatitis B Immunization Aged Out No longer eligible based on patient's age to complete this topic Human Papillomavirus (HPV) Immunization Aged Out No longer eligible based on patient's age to complete this topic Meningococcal Immunization (ACWY) Aged Out No longer eligible based on patient's age to complete this topic Rotavirus Immunization Aged Out No lo nger eligible based on patient's age to complete this topic Insurance MEDICARE [facility] Care Teams Internal Wholesaler Relationship Specialty Start Date End Date Fran Mtz MD [address] [facility] [address] [place] [address] PCP - General Internal Medicine 04/30/20
--- OUTSIDE RECORDS SUMMARY | 2025-10-01 01:46 | XMS_ITS | Clinical Summary ---
Author Organization [facility] Address [address] [place] [address] Care Team Providers Care Seam Rubber Name Role Phone Fran Mtz MD Primary Care Provider [phone] Source Comments [facility],non-owned Affiliates and Associated Physician Practices is amultiple site organization consisting of ambulatory clinics and hospital sitesin [place], [place], [place] and [place]. This disclosure is being madepursuant to the Care Everywhere program and may not contain all information available regarding this patient. Last updated 18.[facility] Allergies Active Allergy Reactions Criticality Noted Date Comments Hmg-Coa-R Inhibitors Other Low 12/06/2023 Medications * Be aware that medications may not be up to date on this document. Alwaysverify current medications with the patient. metoprolol succinate XL 24hr (Toprol XL) 25 [...] tablet by mouth once daily 11/26/2023 Active hydroCHLOROthia zide (Hydrodiuril) 25 MG tablet Take 1 (one) tablet by mouth once daily Active traZODone (Desyrel) 100 MG tablet Take 1 (one) tablet by mouth at bedtime 09/29/2024 Active valACYclovir (Valtrex) 1 GM tablet Take 1 (one) tablet by mouth 3 times daily Active celecoxib (CeleBREX) 200 MG capsule Take 1 (one) capsule by mouth 2 times daily 180 capsule 3 01/26/2025 Active Active Problems Problem Noted Date Diagnosed Date Primary osteoarthritis of right knee 05/28/2024 Encounters Date Type Department Care Team Description 09/23/2025 Orders Only [address], [facility] [address] [place] [phone] Yuri Wall MD Primary osteoarthritis of right knee 08/25/[address], [facility] [address] [place] [address] Yuri Wall MD Surgery Scheduling from Last 3 Months Social History Tobacco Use Types Packs/Day Years Used Date Smoking Tobacco: Never Smokeless Tobacco: Never Tobacco Cessation:Counseling Given: Not Answered Alcohol Use Standard Drinks/Week Comments Yes 2 (1 standard drink = 0.6 oz pur e alcohol) PHQ-2 Answer Date Recorded Patient Health Questionnaire-2 Score 0 05/22/2025 Sex and Gender Information Value Date Recorded [...] 2:03 PM CDT Height 170.2 cm (5' 7) 05/27/2024 2:03 PM CDT Body Mass Index 28.04 05/27/2024 2:03 PM CDT Plan of Treatment Upcoming Encounters Date Type Department Care Team (Latest Contact Info) Description 10/07/2025 10:30 AM INTERIM CONTROLLER [facility] [address] [place] [address] 11/02/2025 10:50 AM INTERIM CONTROLLER Hospital Encounter [facility] - [facility] [address] [facility] [place] [id number] [place] [address] [place] [address] Surgery General 11/02/2025 10:50 AM INTERIM CONTROLLER - 11/02/2025 1:09 PM INTERIM CONTROLLER Surgery [facility] - Perioperative Surgery [address] [place], [place] [id number] [place] [address] [facility] [address] [place] [address] ARTHROPLASTY RIGHT TOTAL KNEE Scheduled Procedures Name Priority Associated Diagnoses Date/Ti me ARTHROPLASTY TOTAL KNEE Primary osteoarthritis of right knee 11/02/2025 10:50 AM INTERIM CONTROLLER Health Maintenance Due Date Last Done Comments [...] 2003 ZOSTER VACCINE (1 of 2) 2003 COVID-19 VACCINE (1 - 2024-2 6 season) 2025 INFLUENZA VACCINE (#1) 2025 Respiratory Syncytial Virus (RSV) Vaccine Pt: or [...] on patient's age to complete this topic Goals Goal Patient Goal Type Associated Problems Recent Progress Patient-Stated? Author Autogenerat ed Goal Care Plan Autogenerated Problem No Yara Crowe Additional Health Concerns Active Problems Noted Date Diagnosed Date Autogenerated Problem 09/23/2025 Insurance MEDICARE MEDICARE [email or web address] [facility] Care Teams Seam Rubber Relationship Specialty Start Date End Date Fran Mtz MD [address] [address] [address] [place] [address] PCP - General Internal Medicine 05/27/24
--- OUTSIDE RECORDS SUMMARY | 2025-10-01 01:46 | XMS_ITS | Encounter Summary ---
Author Organization [facility] Address [address] [place] [address] Care Team Providers Care Vc++ Developer Name Role Phone Fran Mtz MD Primary Care Provider [phone] Encounter Details Date Type Department Care Team (Late st Contact Info) Description 12/01/2020 Lab Requisition [facility] [address] [facility] [place] [id number] Jin Bradshaw Jr., MD [address] [facility] [address] [place] [address] Social History Tobacco Use Types Packs/Day Years [...] (Latest Contact Info) Description 10/07/2025 10:30 AM [facility] [address] [place], [place] [id number] 11/02/2025 10:50 AM [employer] Hospital Encounter [facility] - Perioperative Surgery [address] [place], [place] [id number] [place] [address] [facility] [address] [place], [place] [id number] Surgery General 11/02/2025 10:50 AM [employer] - 11/02/2025 1:09 PM [employer] Surgery [facility] - Perioperative Surgery [address] [place] [address] [place] [address] [place] [address] ARTHROPLASTY RIGHT TOTAL KNEE Scheduled Procedures Name Priority Associated Diagnoses Date/Ti me ARTHROPLASTY TOTAL KNEE Primary osteoarthritis of right knee 11/02/2025 10:50 AM [employer] documented as of this encounter Procedures Procedure Name Priority Date/Time Associated Diagnosis Comments DERMATOPATHOLOGY Routine 11/30/2020 12:0 0 AM [employer] documented in this encounter Results * DERMATOPATHOLOGY (11/30/2020 12:00 AM [employer]) Case Report Dermatopathology Report Case: [id number] Authorizing Provider: Jin Bradshaw Jr., MD Collected: 11/30/2020 12:00 AM Ordering Location: [facility] Received: 12/01/2020 02:32 PM Pathologist: Carmen Rodriguez MD Specimen: Skin, left lateral inferior chest 1 1:04 PM [facility] Final Diagnosis Specimen A. SKIN, left lateral inferior chest: BENIGN VERRUCOUS KERATOSIS, INFLAMED (L82.1) 1 1:04 PM [facility] at [address] [employer] [employer] [facility] Clinical History Inflamed seborrheic keratosis. . 1:04 PM [facility] Gross Description Specimen A: Received is one formalin filled container labeled with the patient's name and designated left lateral inferior chest. The specimen consists of a shave biopsy measuring [id number], bisected. Jar 0. 1 1:04 PM [facility] Microscopic Description Specimen A. SKIN, left lateral inferior chest: Sections show hyperkeratosis, papillomatosis, hypergranulosis, and acanthosis. Inflammatory cells are present within the dermis. These histological findings can be seen in a verruca vulgaris or a seborrheic keratosis. 1 1:04 PM [facility] Disclaimer An external and internal positive and negative controls are appropriate for the histochemical, immunohistochemical and immunofluorescence stain(s) in this case (if any), except where stated explicitly. The performance characteristics of the stain(s) cited in this report were developed and its performance characteristic determined by the Dermatopathology Laboratory at [facility], directed by Dr. Adalgisa Gonzales. These tests need not be, and therefore are not, approved by the [place] Food and Drug Administration. The tests are used for clinical purposes. Billing Codes Specimen Charges Stain Charges 37313 1 1 1:04 PM [facility] Embedded Images 1 1:04 PM [facility] Pathology/Cytolog y TISSUE SPECIMEN FROM SKIN / Unknown 11/30/2020 12/01/2020 2:32 PM [employer] Jin Bradshaw Jr., MD LAB - PATHOLOGY/CYTOLOG Y ORDERABLES Final Result DERMATOPATHOLOGY LABORATORY [facility] - Department of Dermatology [facility] Medicine [address] [place] [address], [address] Floor [address] [phone] documented in this encounter Visit Diagnoses Not on filedocumented in this encounter Care Teams Vc++ Developer Relationship Specialty Start Date End Date Fran Mtz MD [address] [place] [address] [address] [place] [address] PCP - General Internal Medicine 05/27/24 documented as of this encounter
[2025-10-01 09:03] VITALS: BP 169/77; PULSE 54; RESP 18; TEMP 36.3; O2SAT 100; BMI 27.6
[2025-10-01] MEDS: LACTATED RINGERS 1,000 ML 150 ML IV CONT (09:11)
--- NOTE | 2025-10-01 10:46 | WPDANESEPPF ---
Anes - Initial Pre Proc Eval Procedure: Operation Date: 10/01/25 10:30 Proposed Procedures p Screening Colonoscopy - Rober Pérez MD Date/Time: 10/01/25 10:46 Surgeon: Rober Pérez MD Pre Op Diagnosis: Family Hx of malignant neoplasm of digestive organ Patient Data Age: 70 Gender: M Height: 1.68 m Weight: 77.6 kg Last Vital Signs Temp 36.3 C L 10/01/25 09:03 Pulse 54 L 10/01/25 09:03 Resp 18 10/01/25 09:03 BP 169/77 H 10/01/25 09:03 Pulse Ox 100 10/01/25 09:03 O2 Del Method Room Air 10/01/25 09:03 Allergies Allergy/AdvReac Type Severity Reaction Status Date / Time Zelagye-JEY-DfS Reductase AdvReac Cramping Verified 09/22/25 08:12 Inhibitor of the Muscles Home Medications ?Medication ?Instructions ?Recorded ?Confirmed ?Type apremilast 30 mg tablet (Otezla) 30 mg PO BID 10/09/23 10/01/25 History escitalopram oxalate 10 mg tablet 30 mg PO DAILY 10/09/23 10/01/25 History hydrochlorothiazide 25 mg tablet 25 mg PO DAILY 10/09/23 09/22/25 History lisinopril 40 mg tablet 40 mg PO DAILY 10/09/23 10/01/25 History metoprolol succinate 25 mg 25 mg PO DAILY 10/09/23 10/01/25 History tablet,extended release 24 hr nifedipine 90 mg tablet,extended 90 mg PO DAILY 10/09/23 10/01/25 History release trazodone 100 mg tablet 100 mg PO QHS PRN Sleep 10/09/23 09/22/25 History ezetimibe 10 mg tablet 10 mg PO DAILY 11/29/23 10/01/25 History aspirin 81 mg tablet 81 mg PO DAILY 09/22/25 10/01/25 History celecoxib 200 mg capsule 200 mg PO DAILY 09/22/25 10/01/25 History Patient hx anesthesia problems: none Family hx anesthesia problems: none Results Review: All pre-operative results and documents have been reviewed as part of the pre-operative evaluation. [facility] Past Medical History Medical History (Updated 03/11/24 @ 11:09 by Tessie Jean Baptiste PA-C) Anal fissure Hyperlipidemia HTN (hypertension) Surgical History Surgical History (Updated 11/29/23 @ 07:23 by Shilo Perry MD) H/O arthroscopic knee surgery H/O hernia repair Social History Social History Smoking status: Never smoker Additional smoking assessment comments: quit 40 years ago Alcohol intake: current Drinks per week: 2 Alcohol use details: drinks 3-4 x per week, 1-2 drinks on those occasions Substance use type: does not use Lack of Transportation: No Lack of Food: Never True Current Housing: I Have Housing Concerned About Future Housing: No Difficulty Paying Gas/Electric Bills: No Difficulty Paying for Meds: No Currently Unemployed: No Education: Bachelor's Degree Difficulty w/ Childcare or Family Care: No Living arrangements: with family Additional living arrangements comments: Spiritual care concerns: No Anes - Eval Final PreProcedure Day of Procedure 10/01/25 10:46 Patient weight: overweight Heart: regular rate and rhythm Lungs: clear to auscultation Airway: Mallampati scale class II Neurological: alert and oriented Last oral intake: >/= 8 hours ASA classification: II Emergent: no Anesthetic plan: proceed Anesthesia type and monitoring: general GIVS and standard monitoring Results Review: All pre-operative results and documents have been reviewed as part of the pre-operative evaluation. Informed Consent: The patient's anesthetic plan and its attendant risks and benefits were discussed with the patient/family/POA. Questions were solicited and answers provided to the satisfaction of the patient/family/POA.
--- NOTE | 2025-10-01 11:15 | PM.IMHP ---
H&P: HPI History of Present Illness Date/Time: 10/01/25 11:15 Chief Complaint: Screening colonoscopy Narrative: This is the patient's 2nd or 3rd screening colonoscopy. There are no GI symptoms and there is no family history of colorectal cancer. Review of Systems Review of Systems: All systems reviewed & are unremarkable except as noted in HPI and below PMFSH Past Medical History Medical History (Updated 10/01/25 @ 11:15 by Rober Pérez MD) Anal fissure Hyperlipidemia HTN (hypertension) Surgical History Surgical History (Updated 11/29/23 @ 07:23 by Shilo Perry MD) H/O arthroscopic knee surgery H/O hernia repair Social History Social History Smoking status: Never smoker Additional smoking assessment comments: quit 40 years ago Alcohol intake: current Drinks per week: 2 Alcohol use details: drinks 3-4 x per week, 1-2 drinks on those occasions Substance use type: does not use Lack of Transportation: No Lack of Food: Never True Current Housing: I Have Housing Concerned About Future Housing: No Difficulty Paying Gas/Electric Bills: No Difficulty Paying for Meds: No Currently Unemployed: No Education: Bachelor's Degree Difficulty w/ Childcare or Family Care: No Living arrangements: with family Additional living arrangements comments: Spiritual care concerns: No Meds Home Medications and Allergies Home Medications ?Medication ?Instructions ?Recorded ?Confirmed ?Type apremilast 30 mg tablet (Otezla) 30 mg PO BID 10/09/23 10/01/25 History escitalopram oxalate 10 mg tablet 30 mg PO DAILY 10/09/23 10/01/25 History hydrochlorothiazide 25 mg tablet 25 mg PO DAILY 10/09/23 09/22/25 History lisinopril 40 mg tablet 40 mg PO DAILY 10/09/23 10/01/25 History metoprolol succinate 25 mg 25 mg PO DAILY 10/09/23 10/01/25 History tablet,extended release 24 hr nifedipine 90 mg tablet,extended 90 mg PO DAILY 10/09/23 10/01/25 History release trazodone 100 mg tablet 100 mg PO QHS PRN Sleep 10/09/23 09/22/25 History ezetimibe 10 mg tablet 10 mg PO DAILY 01/11/24 11/13/25 History aspirin 81 mg tablet 81 mg PO DAILY 09/22/25 10/01/25 History celecoxib 200 mg capsule 200 mg PO DAILY 09/22/25 10/01/25 History Allergies Allergy/AdvReac Type Severity Reaction Status Date / Time Mpfhtot-HEW-LbF Reductase AdvReac Cramping Verified 09/22/25 08:12 Inhibitor of the Muscles Vital Signs Vital Signs - 24 hr 10/01/25 09:03 Temperature 97.3 F L Pulse Rate 54 L Respiratory Rate 18 Blood Pressure 169/77 H Pulse Oximetry 100 Oxygen Delivery Room Air Exam Const: General: cooperative and healthy appearing Resp: Effort & Inspection: normal respiratory effort and able to speak in complete sentences Auscultation: clear to auscultation bilaterally Cardio: Rate: regular rate Rhythm: regular rhythm GI: Inspection: normal to inspection GI Palp: No No hepatosplenomegaly present Auscultation: normal bowel sounds Rectal Exam: deferred Skin: General skin exam: normal color Psych: Appearance: grossly normal Mental Status: mental status grossly normal Assessment and Plan Assessment and plan (1) Encounter for screening colonoscopy: Code(s): Z12.11 - Encounter for screening for malignant neoplasm of colon Status: Acute Assessment and Plan: The patient is deemed a good candidate for the procedure. Consent signed. Will proceed.
[2025-10-01 11:40] VITALS: BP 131/67; PULSE 52; RESP 19; O2SAT 98
[2025-10-01 11:50] VITALS: BP 141/86; PULSE 51; RESP 14; O2SAT 100
[2025-10-01 12:00] VITALS: BP 163/94; PULSE 55; RESP 17; O2SAT 100
== END 2025-10-01 12:11 | disposition home or self-care (01) ==
PROVIDERS: PCP Internal Medicine; Referring Provider Internal Medicine; Visit Provider Internal Medicine Gastroenterology
PROC: 0DJD8ZZ Inspection of Lower Intestinal Tract, Via Natural or Artificial Opening Endoscopic (ICD-10-PCS; CPT 45378; principal; 2025-10-01 10:30)
DX: Z12.11 Encounter for screening for malignant neoplasm of colon (principal); K64.8 Other hemorrhoids; E78.5 Hyperlipidemia, unspecified; I10 Essential (primary) hypertension; Z79.82 Long term (current) use of aspirin; Z79.1 Long term (current) use of non-steroidal anti-inflammatories (NSAID); Z98.890 Other specified postprocedural states; Z87.891 Personal history of nicotine dependence; Z87.19 Personal history of other diseases of the digestive system
CPT/HCPCS: G0121; J2003; J2704; J7120